=== PATIENT | female | born 1955 | race Hispanic/Latino ===

== ENCOUNTER 2020-03-31 15:40 | Inpatient (IN) | payer OTHER, SELFPAY ==
--- NOTE | 2020-03-31 16:19 | RAD ---
EXAM: CHEST TWO VIEWS: 03/31/20 HISTORY: Constant chest pain, getting worse over the last two weeks. Postop midline sternotomy. Bilateral pleural effusions, slightly larger on the right side with some b ilateral vascular congestion, these findings are new when compared to the prior 05/05/16 study. IMPRESSION: Minimal cardiomegaly with bilateral vascular congestion and bilateral pleural effusions new from prio r study. Depending on concern, consider short term follow-up for clearing or stability. POS: RRE
[2020-03-31] MEDS ORDERED: Nitroglycerin 2% Ointment 1 INCH/1 GM Packet ONE (18:14)
[2020-03-31] MEDS ORDERED: Aspirin Chewable 81 MG TAB ONE (18:14)
[2020-03-31 18:23] LABS: Prothrombin Time 13.5 sec (12.0-14.7)
[2020-03-31 18:24] LABS: PTT 32.5 sec (22.9-36.1)
[2020-03-31 18:33] LABS: #Eosinphils 0.4 thou/uL (0.0-0.7); #Lymphocytes 2.2 thou/uL (1.20-3.40); #Monocytes 0.9 thou/uL (0.11-0.59); #Neutrophils 5.6 thou/uL (1.40-6.50); %Basophils 0.5 % (0.0-1.0); %Eosinophils 4.1 % (0.0-10.0); %Monocytes 9.7 % (0.0-10.0); %Neutrophils 61.7 % (42.0-75.0); Hemoglobin 9.1 g/dL (12.0-16.0); Mean Corpuscular HGB CONC 31.7 g/dL (32.0-36.0); Mean Corpuscular Hemoglobin 27.7 pg (27.0-31.0); Mean Corpuscular Volume 87.2 fL (78.0-98.0); Mean Platelet Volume 7.9 fL (7.4-10.4); Platelet Count 375 thou/uL (130-400); RBC Distribution Width 16.1 % (11.5-14.5); Red Blood Cell (RBC) Count 3.27 mill/uL (4.20-5.40); White Blood Cell (WBC) Count 9.1 thou/uL (4.8-10.8)
[2020-03-31 18:34] LABS: ALT (SGPT) 10 U/L (8-55); AST (SGOT) 15 U/L (5-34); Albumin 3.2 g/dL (3.4-4.8); Alkaline Phosphatase 131 U/L (40-110); Anion Gap 18 mmol/L (10-20); BUN (Urea Nitrogen) 56 mg/dL (9.8-20.1); Bilirubin, Total 0.2 mg/dL (0.2-1.2); CK (CPK) 139 U/L (29-168); Calc. Creatinine Clearance 0 mL/min (70-130); Calcium 8.2 mg/dL (7.8-10.44); Carbon Dioxide 17 mmol/L (23-31); Chloride 112 mmol/L (98-107); Estimated GFR-MDRD 8; Globulin 4.1 g/dL (2.4-3.5); Glucose 121 mg/dL (80-115); Lipase 27 U/L (8-78); Potassium 4.8 mmol/L (3.5-5.1); Protein, Total 7.3 g/dL (6.0-8.3); Sodium 142 mmol/L (136-145)
[2020-03-31] MEDS ORDERED: Furosemide 40 MG/4 ML VIAL ONE (19:36)
[2020-03-31] MEDS ORDERED: hydrALAZINE 20 MG/ML VIAL ONE (20:27)
--- NOTE | 2020-03-31 20:49 | PDOC.HHP ---
Hospitalist HPI - History of Present Illness Fluid overload History of Present Illness: Patient with PMH of HTN, HLD, CAD s/p CABG and CKD presents to the ED at advice of nephrology for evaluation of fluid overload. Per patient she is being followed closely as outpatient by Dr. Mcmanus due to her renal dysfunction. She tells me that over the last 3 months she has seen a progressive decline in her overall status. Refers about a 30 lbs increase in her weight range over the last 3 months. Tells me that over the last 1-2 weeks she has noted worsening dyspnea on exertion and at rest, worsening diffuse edema and has had several episodes of chest pressure. She was instructed to increase her outpatient Lasix over the last several days but has seen little to no improvement. In ED patient with obvious evidence of fluid overload, labs reveal BUN of 53 with worsening SCr of 5.3. no significant electrolyte abnormalities, BNP is elevated at >1000, troponin is negative. Hospitalist ROS - Review of Systems Constitutional: reports: weakness, malaise. denies: fever, chills, sweats Eyes: denies: pain, vision change ENT: denies: ear pain, ear discharge Respiratory: reports: shortness of breath, SOB with excertion, sputum. denies: cough, wheezing Cardiovascular: reports: other (Chest pressure/difficulty breathing). denies: chest pain, palpitations, orthopnea, paroxysmal noc. dyspnea Gastrointestinal: denies: nausea, vomiting, abdominal pain, diarrhea Genitourinary: denies: dysuria, frequency, incontinence Musculoskeletal: denies: neck pain, shoulder pain, back pain Neurological: reports: weakness. denies: numbness, incoordination, change in speech - Exam General Appearance: NAD (Dyspnea at rest) Eye: PERRL, anicteric sclera ENT: normocephalic atraumatic Neck: supple, symmetric, JVD Heart: RRR, no murmur, no gallops Respiratory: normal chest expansion, rales Gastrointestinal: soft, non-tender, non-distended Extremities: 2+ LE edema Neurological: cranial nerve grossly intact Musculoskeletal: normal tone, normal strength Psychiatric: normal affect, normal behavior, A&O x 3 Hospitalist Results - Labs Result Diagrams: 03/31/20 17:53 03/31/20 17:53 Lab results: WBC 9.1 thou/uL (4.8-10.8) 03/31/20 17:53 Hgb 9.1 g/dL (12.0-16.0) L 03/31/20 17:53 Hct 28.5 % (36.0-47.0) L 03/31/20 17:53 MCV 87.2 fL (78.0-98.0) 03/31/20 17:53 Plt Count 375 thou/uL (130-400) 03/31/20 17:53 Neutrophils % 61.7 % (42.0-75.0) 03/31/20 17:53 Sodium 142 mmol/L (136-145) 03/31/20 17:53 Potassium 4.8 mmol/L (3.5-5.1) 03/31/20 17:53 Chloride 112 mmol/L (98-107) H 03/31/20 17:53 Carbon Dioxide 17 mmol/L (23-31) L 03/31/20 17:53 BUN 56 mg/dL (9.8-20.1) H 03/31/20 17:53 Creatinine 5.23 mg/dL (0.6-1.1) H 03/31/20 17:53 Glucose 121 mg/dL (80-115) H 03/31/20 17:53 Calcium 8.2 mg/dL (7.8-10.44) 03/31/20 17:53 Total Bilirubin 0.2 mg/dL (0.2-1.2) 03/31/20 17:53 AST 15 U/L (5-34) 03/31/20 17:53 ALT 10 U/L (8-55) 03/31/20 17:53 Alkaline Phosphatase 131 U/L (40-110) H 03/31/20 17:53 Creatine Kinase 139 U/L (29-168) 03/31/20 17:53 Troponin I 0.025 ng/mL (< 0.028) 03/31/20 17:53 B-Natriuretic Peptide 1118.8 pg/mL (0-100) H 03/31/20 17:53 Serum Total Protein 7.3 g/dL (6.0-8.3) 03/31/20 17:53 Albumin 3.2 g/dL (3.4-4.8) L 03/31/20 17:53 Lipase 27 U/L (8-78) 03/31/20 17:53 - Radiology Interpretation Chest x-ray Status: image reviewed by me (Pulmonary edema with bilateral pleural effusions) Hospitalist H&P A/P - Plan Plan: Problem List 1. Fluid overload 2. Worsening chronic renal failure 3. Bilateral pleural effusions 4. History of CAD s/p CABG 5. Uncontrolled hypertension 6. History of diabetes per records 7. Chronic anemia Assessment and Plan 1. Fluid overload - admit patient for further management - likely multifactorial with worsening CKD as major contributor - given cardiac history can not rule out CHF component - trial of IV Lasix 80 mg BID; pending response consider adding Metolazone vs Bumex - patient may need fluid management with HD - continue with fluid restriction, strict I&Os, daily weigh - monitor electrolytes closely - nephrology service has been consulted 2. Worsening chronic renal failure - multifactorial in nature - chronically has poorly controlled HTN and DM - nephrology service follows 3. Bilateral pleural effusions - in setting of fluid overload - treatment per above plan - consider thoracentesis if poor response to above management 4. History of CAD s/p CABG - per history hx of quadruple bypass - troponin currently negative - check echocardiogram - awaiting med reconciliation 5. Uncontrolled hypertension - resume home medications - add NGT ointment plus hydralazine PRN - fluid management per nephrology 6. History of diabetes per records - currently with no medications on file - check A1c in AM - awaiting med reconciliation 7. Chronic anemia - likely in setting of CKD - nephrology follows DVT PPX: HepSQ. FULL CODE
[2020-03-31] MEDS ORDERED: Acetaminophen 325 MG TAB PO PRN (21:45)
[2020-03-31] MEDS ORDERED: Ondansetron PF 4 MG/2 ML Vial IVP PRN (21:45)
[2020-03-31 22:17] VITALS: BMI 42.9
[2020-04-01 01:16] LABS: Troponin I 0.019 ng/mL (< 0.028)
[2020-04-01 04:40] LABS: #Eosinphils 0.3 thou/uL (0.0-0.7); #Lymphocytes 1.6 thou/uL (1.20-3.40); #Monocytes 0.6 thou/uL (0.11-0.59); #Neutrophils 4.6 thou/uL (1.40-6.50); %Basophils 0.1 % (0.0-1.0); %Eosinophils 4.3 % (0.0-10.0); %Lymphocytes 22.4 % (21.0-51.0); %Monocytes 8.8 % (0.0-10.0); %Neutrophils 64.4 % (42.0-75.0); Hemoglobin 8.2 g/dL (12.0-16.0); Mean Corpuscular HGB CONC 31.2 g/dL (32.0-36.0); Mean Corpuscular Hemoglobin 27.3 pg (27.0-31.0); Mean Corpuscular Volume 87.5 fL (78.0-98.0); Mean Platelet Volume 7.5 fL (7.4-10.4); Platelet Count 323 thou/uL (130-400); RBC Distribution Width 16.4 % (11.5-14.5); Red Blood Cell (RBC) Count 2.99 mill/uL (4.20-5.40); White Blood Cell (WBC) Count 7.1 thou/uL (4.8-10.8)
[2020-04-01 04:44] LABS: Hemoglobin A1c 8.2 % (4.0-6.0)
[2020-04-01 05:01] LABS: Anion Gap 16 mmol/L (10-20); BUN (Urea Nitrogen) 58 mg/dL (9.8-20.1); Calc. Creatinine Clearance 19 mL/min (70-130); Calcium 7.9 mg/dL (7.8-10.44); Carbon Dioxide 18 mmol/L (23-31); Chloride 112 mmol/L (98-107); Estimated GFR-MDRD 8; Glucose 241 mg/dL (80-115); Magnesium 1.7 mg/dL (1.6-2.6); Potassium 4.3 mmol/L (3.5-5.1); Sodium 142 mmol/L (136-145)
[2020-04-01] MEDS: hydrALAZINE 20 MG/ML VIAL SLOW IVP PRN ×3 (05:02→17:11)
[2020-04-01] MEDS: Furosemide 100 MG/10 ML VIAL SLOW IVP SCH ×2 (05:03→13:25)
[2020-04-01] MEDS ORDERED: Dextrose 50% Abboject 50 ML SYRINGE SLOW IVP PRN (08:49)
[2020-04-01] MEDS ORDERED: Dextrose 5% in Water 1,000 ML IV PRN (08:49)
[2020-04-01] MEDS ORDERED: Non-Formulary Item 1 EACH (Atorvastatin Calcium [Atorvastatin Calcium] 80 MG) PO SCH (09:00)
[2020-04-01] MEDS: Amlodipine 10 MG TAB PO SCH (09:56)
[2020-04-01] MEDS: Nitroglycerin 2% Ointment 1 INCH/1 GM Packet TOP SCH ×2 (09:56→20:14)
[2020-04-01] MEDS: Escitalopram Oxalate 20 mg Tablet PO SCH (09:56)
[2020-04-01] MEDS: Aspirin 81 mg Enteric Coated Tablet PO SCH (09:56)
[2020-04-01] MEDS: Heparin 5,000 UNITS/ML VIAL SC SCH ×3 (09:58→20:14)
[2020-04-01] MEDS: HumaLOG 300 UNITS/3 ML VIAL SC PRN ×2 (12:15→17:14)
--- NOTE | 2020-04-01 13:24 | PDOC.HOSPP ---
- Subjective Encounter Date: 04/01/20 Encounter Time: 10:25 Subjective: has sob at rest and worse on minimal exertion no chest pain or palp at bedside - Objective Vital Signs & Weight: Vital Signs (12 hours) Temp Pulse Resp BP Pulse Ox 04/01/20 12:07 97.8 F 66 20 185/79 H 94 L 04/01/20 07:55 97.5 F L 68 16 187/75 H 94 L 04/01/20 07:07 94 L 04/01/20 03:39 97.5 F L 69 20 196/81 H 94 L Weight Weight 235 lb I&O: 03/31/20 04/01/20 04/02/20 06:59 06:59 06:59 Intake Total 240 Output Total 900 Balance -660 Result Diagrams: 04/01/20 04:14 04/01/20 04:14 Additional Labs: Accuchecks 04/01/20 11:07 POC Glucose 347 H Hospitalist ROS - Medication Medications: Active Medications Generic Name Dose Route Start Last Admin Trade Name Freq PRN Reason Stop Dose Admin Amlodipine Besylate 10 mg 04/01/20 09:00 04/01/20 09:56 Norvasc PO 10 mg DAILY SHANITA Administration Aspirin 81 mg 04/01/20 09:00 04/01/20 09:56 Ecotrin PO 81 mg DAILY SHANITA Administration Escitalopram Oxalate 20 mg 04/01/20 09:00 04/01/20 09:56 Lexapro PO 20 mg DAILY SHANITA Administration Furosemide 80 mg 04/01/20 06:00 04/01/20 05:03 Lasix SLOW IVP 80 mg 0600,1400 SHANITA Administration Heparin Sodium (Porcine) 5,000 units 04/01/20 09:00 04/01/20 09:58 Heparin SC 5,000 units TID SHANITA Administration Hydralazine HCl 10 mg 03/31/20 22:04 04/01/20 12:20 Apresoline SLOW IVP 10 mg Q4H PRN Administration SBP Greater Than 170 Insulin Human Lispro 0 units 04/01/20 08:49 04/01/20 12:15 Humalog SC 8 unit .MODERATE SLIDING SC PRN Administration Moderate Correctional Scale Metoprolol Succinate 200 mg 04/01/20 09:00 04/01/20 09:56 Toprol Xl PO 200 mg DAILY SHANITA Administration Nitroglycerin 0.5 inch 04/01/20 09:00 04/01/20 09:56 Nitro-Bid 2% Ointment TOP 0.5 inch BID SHANITA Administration Sodium Chloride 10 ml 04/01/20 09:00 04/01/20 09:58 Flush - Normal Saline IVF 10 ml Q12HR SHANITA Administration - Exam General Appearance: awake alert, ill appearing Eye: PERRL, anicteric sclera ENT: no oropharyngeal lesions, moist mucosa Neck: supple, JVD Heart: RRR, no murmur Respiratory: no wheezes, rales, rhonchi Gastrointestinal: soft, non-tender, non-distended, normal bowel sounds Extremities: no cyanosis, 1+ LE edema Neurological: cranial nerve grossly intact, no focal deficits Psychiatric: normal affect, A&O x 3 Hosp A/P (1) Volume overload Code(s): E87.70 - FLUID OVERLOAD, UNSPECIFIED Status: Acute (2) YENIFER (acute kidney injury) Code(s): N17.9 - ACUTE KIDNEY FAILURE, UNSPECIFIED Status: Acute (3) CKD (chronic kidney disease) stage 4, GFR 15-29 ml/min Code(s): N18.4 - CHRONIC KIDNEY DISEASE, STAGE 4 (SEVERE) Status: Chronic (4) Metabolic acidosis Code(s): E87.2 - ACIDOSIS Status: Acute (5) CAD (coronary artery disease) Code(s): I25.10 - ATHSCL HEART DISEASE OF [place] CORONARY ARTERY W/O ANG PCTRS Status: Chronic Qualifiers: Coronary Disease-Associated Artery/Lesion type: bypass graft [place] vs. transplanted heart: [place] heart Associated angina: without angina Qualified Code(s): I25.810 - Atherosclerosis of coronary artery bypass graft(s) without angina pectoris (6) Chronic anemia Code(s): D64.9 - ANEMIA, UNSPECIFIED Status: Chronic (7) HTN (hypertension) Code(s): I10 - ESSENTIAL (PRIMARY) HYPERTENSION Status: Chronic Qualifiers: Hypertension type: essential hypertension Qualified Code(s): I10 - Essential (primary) hypertension (8) Dyslipidemia Code(s): E78.5 - HYPERLIPIDEMIA, UNSPECIFIED Status: Chronic - Plan is on lasix, toprol xl, norvasc and asp echo shows normal ef d/w , wants to observe if her renal function and sob will improve with meds if not will initiate hemodialysis will likely end up on HD this admission humalog sliding scale for now, will add lantus if needed hemostable d/w patient and at bedside
[2020-04-01] MEDS ORDERED: Metolazone 2.5 MG TAB PO SCH (17:15)
--- NOTE | 2020-04-01 18:29 | PRG ---
DATE OF SERVICE: 04/01/2020 SUBJECTIVE: A 64-year-old female being seen for stage 5 chronic kidney disease. Patient states breathing is better, but still has lot of swelling. OBJECTIVE: GENERAL: Awake, alert. VITAL SIGNS: Pulse is 68, breathing 16, blood pressure 171/74. HEENT: Head normocephalic and atraumatic. Eyes intact, no ulcers. Nose intact, no ulcers. Ears intact, no ulcers. NECK: Supple. No JVD. CHEST: Symmetrical and clear. CARDIOVASCULAR: Shows S1 and S2, no rub, no murmur. GASTROINTESTINAL: Abdomen is soft, bowel sounds positive. EXTREMITIES: Show no edema or ulcers. SKIN: Shows no rash or petechiae. MUSCULOSKELETAL: Shows no joint swelling or stiffness. GENITOURINARY: Shows no Burns or CVA tenderness. NEUROLOGIC: Motor intact. Cranial nerves intact. LABORATORY DATA: Reviewed. ASSESSMENT: Stage 5 chronic kidney disease. Continue dialysis. Hypertension, stable. Anemia, stable. Congestive heart failure. Continue diabetic medication based on GFR appropriate. We will consult General Surgery for venous mapping. If renal function does not improve by tomorrow, we will consider a tunneled dialysis catheter. Job ID: [id number]
[2020-04-01] MEDS: Atorvastatin Calcium 40 MG TAB PO SCH (20:14)
[2020-04-01] MEDS ORDERED: CEFAZOLIN 2 GM in Premix Bag 1 BAG IVPB SCH (20:45)
--- NOTE | 2020-04-01 20:59 | CON ---
DATE OF CONSULTATION: HISTORY OF PRESENT ILLNESS: Aruna Valdez is a 64-year-old female, admitted to the Hospitalist Service for progressive kidney disease. I have been asked to see her by Dr. Blair regarding placement of a primary fistula. Her GFR is 8, BUN 58, creatinine 5.2, potassium 4.3, CO2 is 18. She is 43 BMI, 5 feet 2 inches, and 235 pounds. She has metabolic syndrome with morbid obesity, diabetes, hypertension, elevated cholesterol, coronary artery disease status post coronary artery bypass grafting two years ago followed by Dr. Arita. Urine output is 900 mL per day. I have been asked to see her regarding placement of a primary fistula. We will also plan placement of central line due to difficult IV access. She does not need hemodialysis catheter access yet, but we will wait for her numbers tomorrow and ask Dr. Blair before we plan this around noon. ALLERGIES: NONE. SOCIAL HISTORY: Tobacco, none. Alcohol, none. MEDICATIONS: 1. Insulin. 2. Hydralazine. 3. Lexapro. 4. Amlodipine. 5. Metoprolol. 6. Aspirin. 7. Furosemide. 8. Atorvastatin. PAST SURGICAL HISTORY: Coronary artery bypass grafting in 2017, followed by Dr. Arita. PAST MEDICAL HISTORY: As noted above. FAMILY HISTORY: Heart disease and renal failure. REVIEW OF SYSTEMS: Noncontributory. Never has had colonoscopy. PHYSICAL EXAMINATION: VITAL SIGNS: 5 feet 2 inches, 235 pounds, 43 BMI, temperature 94, heart rate 165, and blood pressure 167/74. HEAD, EARS, EYES, NOSE, AND THROAT: Unremarkable. LUNGS: Clear to auscultation. CARDIAC: Regular rate and rhythm without murmur or gallop. ABDOMEN: Obese, soft, and nontender. EXTREMITIES: Unremarkable. Large pannus. Palpable radial pulses. ASSESSMENT AND PLAN: Progressive kidney disease. Plan placement of primary fistula of right or left arm pending vein mapping. Plan placement of a central line. If Dr. Blair decides he needs a dialysis catheter, we will also place that, but at this time, she probably does not need that. Job ID: [id number]
--- NOTE | 2020-04-01 23:28 | ULT ---
Exam: Vein mapping for dialysis access HISTORY: End-stage renal disease. TECHNIQUE: Multiplanar grayscale and color Doppler images were obtained in a bilateral upper extremit y venous ultrasound. Spectral analysis of the Doppler waveforms of the vessels were performed. FINDINGS: The bilateral internal jugular and axillary veins as well as subclavian veins demonstrate f low. Right brachial artery 5.6 mm Right radial artery 2.4 mm Right ulnar artery 1.8 mm Left brachial artery 5.4 mm Left radial artery 2.3 mm Left ulnar artery 2.3 mm RIGHT CEPHALIC VEIN in millimeters 3.6 -- Shoulder 3.0 -- Upper arm 3.3 -- Mid upper arm 3.7-- Just proximal to the elbow 2.0 -- Just distal to the elbow 2.0 -- Forearm 1.4 -- Wrist RIGHT BASILIC VEIN in millimeters 5.2 -- Shoulder 2.2 -- Upper arm 2.2 -- Mid upper arm 2.2 -- Just proximal to the elbow 1.4 -- Just distal to the elbow 2.2 -- Forearm 1.6 -- Wrist LEFT CEPHALIC VEIN in millimeters 4.0 -- Shoulder 3.9 -- Upper arm 3.4 -- Mid upper arm 2.7 -- Just proximal to the elbow 3.3 -- Just distal to the elbow 2.1 -- Forearm 1.7 -- Wrist LEFT BASILIC VEIN in millimeters 5.2 -- Shoulder 2.5 -- Upper arm 2.5 -- Mid upper arm 2.4 -- Just proximal to the elbow 2.0 -- Just distal to the elbow 2.0 -- Forearm 1.7 -- Wrist IMPRESSION: Vein mapping for dialysis access as above
--- NOTE | 2020-04-02 01:00 | CON ---
DATE OF CONSULTATION: 03/31/2020 REASON FOR CONSULTATION: Edema and congestive heart failure. HISTORY OF PRESENT ILLNESS: This is a 64-year-old female, who was sent to the hospital from my clinic for worsening leg pain, nausea, and inability to breathe. The patient has history of progressive renal disease. The patient denies any chest pain or vomiting, but has had chest heaviness on and off. PAST MEDICAL HISTORY: Significant for hypertension, edema, diabetes mellitus, anemia, obesity, SOCIOECONOMIC HISTORY: No alcohol or drug use. FAMILY HISTORY: Negative for ESRD. ALLERGIES: REVIEWED. HOME MEDICATION LIST: Reviewed. HOSPITAL MEDICATION LIST: Reviewed. REVIEW OF SYSTEMS: A 15-point review of system was performed and negative except for positives noted above. HEENT: Eyes intact, no diplopia. Ears: No hearing loss or earache. Nose: No discharge or bleeding. CHEST: No cough or phlegm. ABDOMEN: No nausea or vomiting. GENITOURINARY: No hematuria. No Burns catheter. MUSCULOSKELETAL: No low back pain. No joint swelling or pain. NEUROLOGICAL: No syncope. No seizures. SKIN: No complaints of rash or itching. PSYCHIATRIC: No depression. CONSTITUTIONAL: No weight loss or loss of appetite. PHYSICAL EXAMINATION: GENERAL: The patient is awake and alert. VITAL SIGNS: Afebrile, pulse 75, breathing at 16, blood pressure was 180/90 HEENT: Head normocephalic and atraumatic. Eyes intact, no ulcers. Nose intact, no ulcers. Ears intact, no ulcers. NECK: Supple. No JVD. CHEST: Symmetrical and clear. CARDIOVASCULAR: Shows S1 and S2, no rub, no murmur. GASTROINTESTINAL: Abdomen is soft, bowel sounds positive. EXTREMITIES: The patient has 4+ edema. SKIN: Shows no rash or petechiae. MUSCULOSKELETAL: Shows no joint swelling or stiffness. GENITOURINARY: Shows no Burns or CVA tenderness. NEUROLOGIC: Motor intact. Cranial nerves intact. LABORATORY DATA: Reviewed. ASSESSMENT AND PLAN: Stage 5 chronic kidney disease with acute kidney injury and pulmonary edema. We will start IV diuretics. If fails, we will consider dialysis. Hypertensive and anemic, stable; medication based on GFR if appropriate. Job ID: [id number]
[2020-04-02 04:10] LABS: Anion Gap 18 mmol/L (10-20); BUN (Urea Nitrogen) 57 mg/dL (9.8-20.1); Calc. Creatinine Clearance 18 mL/min (70-130); Calcium 7.8 mg/dL (7.8-10.44); Carbon Dioxide 17 mmol/L (23-31); Chloride 110 mmol/L (98-107); Estimated GFR-MDRD 8; Glucose 218 mg/dL (80-115); Potassium 4.2 mmol/L (3.5-5.1); Sodium 141 mmol/L (136-145)
[2020-04-02 04:14] LABS: Troponin I 0.028 ng/mL (< 0.028)
[2020-04-02] MEDS: Furosemide 100 MG/10 ML VIAL SLOW IVP SCH ×2 (06:06→18:38)
[2020-04-02] MEDS: Heparin 5,000 UNITS/ML VIAL SC SCH ×3 (08:37→20:37)
[2020-04-02] MEDS: Aspirin 81 mg Enteric Coated Tablet PO SCH (08:39)
[2020-04-02] MEDS: Amlodipine 10 MG TAB PO SCH (08:39)
[2020-04-02] MEDS: Escitalopram Oxalate 20 mg Tablet PO SCH (08:39)
[2020-04-02] MEDS: Nitroglycerin 2% Ointment 1 INCH/1 GM Packet TOP SCH ×2 (08:40→20:37)
[2020-04-02] MEDS: hydrALAZINE 20 MG/ML VIAL SLOW IVP PRN (11:11)
[2020-04-02] MEDS: HumaLOG 300 UNITS/3 ML VIAL SC PRN (11:13)
[2020-04-02] MEDS ORDERED: Metolazone 2.5 MG TAB PO SCH (12:30)
--- NOTE | 2020-04-02 12:57 | PRG ---
DATE OF SERVICE: 04/02/2020 SUBJECTIVE: A 64-year-old female, being seen for acute kidney injury. The patient still complains of shortness of breath and swelling. The patient denies any chest pain. OBJECTIVE: General: The patient is resting. Vital Signs: Afebrile, pulse 75, breathing 16, blood pressure 167/68. HEENT: Head normocephalic and atraumatic. Eyes intact, no ulcers. Nose intact, no ulcers. Ears intact, no ulcers. Neck: Supple. No JVD. Chest: Symmetrical and clear. Cardiovascular: Shows S1 and S2, no rub, no murmur. Gastrointestinal: Abdomen is soft, bowel sounds positive. Extremities: Show no edema or ulcers. Skin: Shows no rash or petechiae. Musculoskeletal: Shows no joint swelling or stiffness. Genitourinary: Shows no Burns or CVA tenderness. Neurologic: Motor intact. Cranial nerves intact. LABORATORY DATA: Hemoglobin 8.2. Creatinine 5.39. ASSESSMENT AND PLAN: 1. Stage 6 chronic kidney disease. Risks versus benefits of dialysis were discussed. We will plan dialysis. 2. Hypertension, plan ultrafiltration. 3. Edema, start metolazone daily. 4. Metabolic acidosis, plan dialysis. Job ID: [id number]
--- NOTE | 2020-04-02 14:24 | PDOC.HOSPP ---
- Subjective Encounter Date: 04/02/20 Encounter Time: 09:35 Subjective: has sob, no chest pain or palp is amb in room - Objective Vital Signs & Weight: Vital Signs (12 hours) Temp Pulse Resp BP Pulse Ox 04/02/20 11:05 97.9 F 71 18 187/74 H 95 04/02/20 10:27 71 167/68 H 04/02/20 07:46 98.9 F 74 19 189/74 H 94 L 04/02/20 04:00 98.3 F 65 16 142/58 H 96 Weight Weight 234 lb I&O: 04/01/20 04/02/20 04/03/20 06:59 06:59 06:59 Intake Total 240 240 Output Total 900 1200 Balance -660 -960 Result Diagrams: 04/01/20 04:14 04/02/20 03:31 Additional Labs: Accuchecks 04/02/20 04/02/20 04/01/20 13:58 05:58 20:34 POC Glucose 194 H 244 H 261 H 04/01/20 17:11 POC Glucose 210 H Hospitalist ROS - Medication Medications: Active Medications Generic Name Dose Route Start Last Admin Trade Name Freq PRN Reason Stop Dose Admin Amlodipine Besylate 10 mg 04/01/20 09:00 04/02/20 08:39 Norvasc PO 10 mg DAILY SHANITA Administration Aspirin 81 mg 04/01/20 09:00 04/02/20 08:39 Ecotrin PO 81 mg DAILY SHANITA Administration Atorvastatin Calcium 80 mg 04/01/20 21:00 04/01/20 20:14 Lipitor PO 80 mg HS SHANITA Administration Escitalopram Oxalate 20 mg 04/01/20 09:00 04/02/20 08:39 Lexapro PO 20 mg DAILY SHANITA Administration Furosemide 80 mg 04/01/20 06:00 04/02/20 06:06 Lasix SLOW IVP 80 mg 0600,1400 SHANITA Administration Heparin Sodium (Porcine) 5,000 units 04/01/20 09:00 04/02/20 08:37 Heparin SC Not Given TID SHANITA Hydralazine HCl 10 mg 03/31/20 22:04 04/02/20 11:11 Apresoline SLOW IVP 10 mg Q4H PRN Administration SBP Greater Than 170 Insulin Human Lispro 0 units 04/01/20 08:49 04/02/20 11:13 Humalog SC 4 unit .MODERATE SLIDING SC PRN Administration Moderate Correctional Scale Metoprolol Succinate 200 mg 04/01/20 09:00 04/02/20 08:39 Toprol Xl PO 200 mg DAILY SHANITA Administration Nitroglycerin 0.5 inch 04/01/20 09:00 04/02/20 08:40 Nitro-Bid 2% Ointment TOP 0.5 inch BID SHANITA Administration Sodium Chloride 10 ml 04/01/20 09:00 04/02/20 08:41 Flush - Normal Saline IVF 10 ml Q12HR SHANITA Administration - Exam General Appearance: awake alert, ill appearing Eye: PERRL, anicteric sclera ENT: no oropharyngeal lesions, moist mucosa Neck: supple, no JVD Heart: RRR, no murmur Respiratory: no wheezes, rales Gastrointestinal: soft, non-tender, non-distended, normal bowel sounds Extremities: no cyanosis, 1+ LE edema Neurological: cranial nerve grossly intact, no focal deficits Psychiatric: normal affect, A&O x 3 Hosp A/P (1) Volume overload Code(s): E87.70 - FLUID OVERLOAD, UNSPECIFIED Status: Acute (2) YENIFER (acute kidney injury) Code(s): N17.9 - ACUTE KIDNEY FAILURE, UNSPECIFIED Status: Acute (3) CKD (chronic kidney disease) stage 4, GFR 15-29 ml/min Code(s): N18.4 - CHRONIC KIDNEY DISEASE, STAGE 4 (SEVERE) Status: Chronic (4) Metabolic acidosis Code(s): E87.2 - ACIDOSIS Status: Acute (5) CAD (coronary artery disease) Code(s): I25.10 - ATHSCL HEART DISEASE OF [place] CORONARY ARTERY W/O ANG PCTRS Status: Chronic Qualifiers: Coronary Disease-Associated Artery/Lesion type: bypass graft [place] vs. transplanted heart: [place] heart Associated angina: without angina Qualified Code(s): I25.810 - Atherosclerosis of coronary artery bypass graft(s) without angina pectoris (6) Chronic anemia Code(s): D64.9 - ANEMIA, UNSPECIFIED Status: Chronic (7) HTN (hypertension) Code(s): I10 - ESSENTIAL (PRIMARY) HYPERTENSION Status: Chronic Qualifiers: Hypertension type: essential hypertension Qualified Code(s): I10 - Essential (primary) hypertension (8) Dyslipidemia Code(s): E78.5 - HYPERLIPIDEMIA, UNSPECIFIED Status: Chronic - Plan is on lasix, metolazone, toprol xl, norvasc and asp echo shows normal ef will likely start HD this admission humalog sliding scale for now, will add lantus if needed hemostable
[2020-04-02] MEDS ORDERED: Bupivacaine HCl 0.5%/Epinephrine 1:200,000/PF 30 ml Vial ONE (15:25)
[2020-04-02] MEDS ORDERED: PROPOFOL 200 MG/20 ML VIAL ONE (15:25)
[2020-04-02] MEDS ORDERED: Fentanyl 100 MCG/2 ML VIAL ONE (15:44)
[2020-04-02] MEDS ORDERED: Lidocaine 2% PF 5 ML VIAL ONE (15:52)
[2020-04-02] MEDS ORDERED: Heparin 5,000 UNITS/ML VIAL ONE (15:52)
[2020-04-02] MEDS ORDERED: Heparin 10,000 UNITS/1 ML VIAL ONE (15:52)
[2020-04-02] MEDS ORDERED: Sodium Chloride 0.9% 40 ML ONE (15:52)
[2020-04-02] MEDS ORDERED: Protamine Sulfate 50 MG/5 ML VIAL ONE (15:52)
[2020-04-02] MEDS ORDERED: Bupivacaine PF 0.5% 30 ML VIAL ONE (15:52)
--- NOTE | 2020-04-02 18:43 | RAD ---
EXAM: CHEST ONE VIEW HISTORY: Post hemodialysis catheter placement. COMPARISON: 03/31/2020 FINDINGS: There has been interval placement of a left internal jugular vein central venous catheter with tip ov erlying the expected location of the cavoatrial junction. There has also been interval placement of a tunneled right internal jugular vein hemodialysis catheter with the tip also overlying the expected location of the cavoatrial junction. Median sternotomy wires are present. Cardiac silhouette is enlarged. There is mild pulmonary vascular congestion. Lungs are otherwise clear without pneumothorax or definite pleural effusion. Vascular calcifications are seen in the thoracic aorta. IMPRESSION: 1 Interval placement of a left internal jugular vein central venous catheter in tunneled right internet designer al jugular vein hemodialysis catheter with the tip of each catheter overlying the expected location the cavoatrial junction. No pneumothorax or pleural effusion is seen. 2. Cardiomegaly and pulmonary vascular congestion.
[2020-04-02] MEDS: Atorvastatin Calcium 40 MG TAB PO SCH (20:37)
--- NOTE | 2020-04-03 00:36 | OP ---
DATE OF PROCEDURE: 04/02/2020 PREOPERATIVE DIAGNOSES: 1. End-stage renal disease. 2. Morbid obesity. 3. Metabolic syndrome. 4. Insulin-dependent diabetes mellitus. 5. Sleep apnea. 6. Orthopnea. 7. Dyspnea. 8. Fluid overload. 9. Acidosis. 10. Poor IV access. PROCEDURES PERFORMED: Right IJ cuffed tunneled dialysis catheter, left IJ central line, ultrasound and fluoroscopy used. Left arm primary fistula, exploration of the wrist noting veins to be inadequate, and wound close. Proximal volar forearm antecubital vein to proximal radial artery outflow primarily. Basilic vein seemed to be larger, but cephalic vein patent. She will need a basilic vein transposition fistula in the future. ANESTHESIA: Regional, TIVA local. DESCRIPTION OF PROCEDURE: Patient was taken to the operating room, where under left arm regional anesthesia and intravenous sedation, neck and chest and left upper extremity were prepared with ChloraPrep and draped in routine fashion, local anesthetic totaling skin and subcutaneous tissue about the operative site. Ultrasound guidance was used to cannulate the right and left internal jugular veins and J-wire threaded on each side. Trocar catheter removed. Skin was incised sharply on both sides. Stab incision over the right chest made. Seldinger technique used to place a triple-lumen catheter left IJ, secured with 3-0 nylon suture, removed the J-wire, securing the catheter and placed a sterile dressing. Aspirated each port of blood, flushed with saline solution. Attention was then turned to the right, where a tunneling device used to tunnel the pre-curved [employer] cuffed tunneled hemodialysis catheter between the 2 incisions, placed the fabric cuff in the skin exit site over the right chest and catheter secured with 2 interrupted suture of 3-0 nylon. Sterile dressing applied. Small and medium size dilators placed with J-wire into the internal jugular vein removed. Dilator and Peel-Away sheath placed and J-wire and dilator removed. Catheter placed with Peel-Away sheath. Peel-Away sheath removed. Fluoroscopy images revealed good line placement. Platysma was approximated with 4-0 Monocryl, skin with subdermal 4-0 Monocryl. Manawa glue applied. Each port aspirated of blood, flushed with saline solution with heparinized saline solution 1000 units of heparin per mL, indicating volume of the port. Attention was then turned to the left arm. Incision was made in the left wrist finding the vein to be inadequate and this was closed with 3-0 Monocryl subcutaneous tissue approximation. Skin with subdermal 4-0 Monocryl. Manawa glue applied. Attention was then turned to the proximal volar forearm, where longitudinal incision was made below the antecubital fossa, carried through the skin and subcutaneous tissue. Patient is morbidly obese and had a very thick adipose layer. The antecubital vein was dissected free. Perforating branch dissected free. Branches were divided between clips and interrogated, it was too small, it was ligated with a 4-0 silk tie. An antecubital vein doubly clipped with large clips on the hand side and transected and the patient was given 6000 units of heparin intravenously. The vein was spatulated, flushed with heparinized saline solution, interrogated with coronary dilators, placed the coronary dilators from 2 mm to 4 mm dilator out the basilic vein outflow and a 3.5 mm out the cephalic vein outflow. The cephalic vein outflow seemed to be temperamental and sometimes would allow dilator and sometimes would not. Proximal radial artery identified, clamped proximally and distally, longitudinal arteriotomy was made sharply, elongated with the Alaniz scissors for 2 cm anastomosis. The end antecubital vein appropriately spatulated, continuous suture of 6-0 Prolene used for the anastomosis completing the anastomosis and hemostasis with 6-0 Prolene. Good hemostasis noted. Vascular clamps released. There was good Doppler signal in the basilic cephalic vein outflow. Good hemostasis noted. Patient was given 25 mg of protamine intravenously by Anesthesia. Subcutaneous tissue was approximated with 3-0 Monocryl, skin with subdermal 4-0 Monocryl, and Manawa glue applied. Patient tolerated the procedure well. Job ID: [id number]
[2020-04-03] MEDS: traMADol HCl 50 MG TAB PO PRN ×2 (02:06→18:19)
[2020-04-03 04:52] LABS: Hep B Core Total Ab Non-Reactive (NonReactive)
[2020-04-03 04:53] LABS: Hep B Surf Ag Non-Reactive S/CO (NonReactive)
[2020-04-03 05:56] LABS: HBSAg Index 0.13 S/CO (0-0.99); Hep B Surf AB Non-Reactive (NonReactive)
[2020-04-03 05:57] LABS: HBSAB Concentration 1.39 mIU/mL; Hep C IgG Ab Non-Reactive (NonReactive); Hep C Index 0.05 S/CO (0-0.79)
[2020-04-03] MEDS: Furosemide 100 MG/10 ML VIAL SLOW IVP SCH ×2 (05:59→17:21)
[2020-04-03] MEDS: HumaLOG 300 UNITS/3 ML VIAL SC PRN ×3 (05:59→21:11)
[2020-04-03] MEDS: Amlodipine 10 MG TAB PO SCH (08:51)
[2020-04-03] MEDS: Aspirin 81 mg Enteric Coated Tablet PO SCH (08:51)
[2020-04-03] MEDS: Escitalopram Oxalate 20 mg Tablet PO SCH (08:51)
[2020-04-03] MEDS: Heparin 5,000 UNITS/ML VIAL SC SCH ×3 (08:51→21:11)
[2020-04-03] MEDS: Acetaminophen 500 MG TAB PO PRN ×2 (08:51→21:10)
[2020-04-03] MEDS: Polyethylene Glycol 3350 17 GM Packet PO SCH (08:52)
[2020-04-03] MEDS: Nitroglycerin 2% Ointment 1 INCH/1 GM Packet TOP SCH ×2 (08:52→21:10)
[2020-04-03 09:22] LABS: Hemoglobin 8.3 g/dL (12.0-16.0)
[2020-04-03 09:34] LABS: Anion Gap 14 mmol/L (10-20); BUN (Urea Nitrogen) 59 mg/dL (9.8-20.1); Calc. Creatinine Clearance 16 mL/min (70-130); Calcium 7.9 mg/dL (7.8-10.44); Carbon Dioxide 19 mmol/L (23-31); Chloride 104 mmol/L (98-107); Estimated GFR-MDRD 7; Glucose 224 mg/dL (80-115); Sodium 133 mmol/L (136-145)
--- NOTE | 2020-04-03 09:59 | PRG ---
DATE OF SERVICE: 04/03/2020 SUBJECTIVE: A 64-year-old female being seen for end-stage renal disease. The patient denied nausea, vomiting, or chest pain. OBJECTIVE: GENERAL: On exam, the patient is awake and alert. VITAL SIGNS: Afebrile, pulse 64, breathing 16, and blood pressure 185/75. HEENT: Head normocephalic and atraumatic. Eyes intact, no ulcers. Nose intact, no ulcers. Ears intact, no ulcers. NECK: Supple. No JVD. CHEST: Symmetrical and clear. CARDIOVASCULAR: Shows S1 and S2, no rub, no murmur. GASTROINTESTINAL: Abdomen is soft, bowel sounds positive. EXTREMITIES: Show no edema or ulcers. SKIN: Shows no rash or petechiae. MUSCULOSKELETAL: Shows no joint swelling or stiffness. GENITOURINARY: Shows no Burns or CVA tenderness. NEUROLOGIC: Motor intact. Cranial nerves intact. LABORATORY DATA: Reviewed. Today's labs are pending. ASSESSMENT AND PLAN: 1. Chronic kidney disease, stage 6. Plan dialysis. 2. Hypertension. Plan ultrafiltration. 3. Edema. Plan ultrafiltration. 4. Anemia, stable. 5. Medications based on GFR are appropriate. Job ID: [id number]
[2020-04-03] MEDS ORDERED: Heparin 10,000 UNITS/ 10 ML VIAL ONE (10:03)
--- NOTE | 2020-04-03 10:39 | PDOC.HOSPP ---
- Subjective Encounter Date: 04/03/20 Encounter Time: 09:45 Subjective: Patient seen and examined for volume overload/CHF. SOB improving. No CP. No new complaints. No overnight events - Objective Vital Signs & Weight: Vital Signs (12 hours) Temp Pulse Resp BP BP Pulse Ox 04/03/20 08:51 64 185/75 H 04/03/20 08:00 97.8 F 64 18 185/75 H 93 L 04/03/20 03:43 97.7 F 64 18 148/67 H 95 04/02/20 23:41 156/68 H Weight Weight 230 lb 4.8 oz I&O: 04/02/20 04/03/20 04/04/20 06:59 06:59 06:59 Intake Total 240 Output Total 1200 Balance -960 Result Diagrams: 04/03/20 09:12 04/03/20 09:12 Additional Labs: Accuchecks 04/02/20 04/02/20 04/02/20 20:26 13:58 11:13 POC Glucose 237 H 194 H 228 H EKG Reviewed by me: Yes (Tele SR) Hospitalist ROS - Review of Systems Respiratory: denies: cough, dry, shortness of breath, hemoptysis, SOB with excertion, pleuritic pain, sputum, wheezing, other Cardiovascular: denies: chest pain, palpitations, orthopnea, paroxysmal noc. dyspnea, edema, light headedness, other - Medication Medications: Active Medications Generic Name Dose Route Start Last Admin Trade Name Freq PRN Reason Stop Dose Admin Acetaminophen 1,000 mg 04/02/20 18:20 04/03/20 08:51 Tylenol PO 1,000 mg Q6H PRN Administration Moderate to Severe Pain (6-10) Amlodipine Besylate 10 mg 04/01/20 09:00 04/03/20 08:51 Norvasc PO 10 mg DAILY SHANITA Administration Aspirin 81 mg 04/01/20 09:00 04/03/20 08:51 Ecotrin PO 81 mg DAILY SHANITA Administration Atorvastatin Calcium 80 mg 04/01/20 21:00 04/02/20 20:37 Lipitor PO Not Given HS SHANITA Escitalopram Oxalate 20 mg 04/01/20 09:00 04/03/20 08:51 Lexapro PO 20 mg DAILY SHANITA Administration Furosemide 80 mg 04/01/20 06:00 04/03/20 05:59 Lasix SLOW IVP 80 mg 0600,1400 SHANITA Administration Heparin Sodium (Porcine) 5,000 units 04/01/20 09:00 04/03/20 08:51 Heparin SC 5,000 units TID SHANITA Administration Hydralazine HCl 10 mg 03/31/20 22:04 04/02/20 11:11 Apresoline SLOW IVP 10 mg Q4H PRN Administration SBP Greater Than 170 Insulin Human Lispro 0 units 04/01/20 08:49 04/03/20 05:59 Humalog SC 4 unit .MODERATE SLIDING SC PRN Administration Moderate Correctional Scale Metoprolol Succinate 200 mg 04/01/20 09:00 04/03/20 08:51 Toprol Xl PO 200 mg DAILY SHANITA Administration Nitroglycerin 0.5 inch 04/01/20 09:00 04/03/20 08:52 Nitro-Bid 2% Ointment TOP 0.5 inch BID SHANITA Administration Polyethylene Glycol 17 gm 04/03/20 09:00 04/03/20 08:52 Miralax PO Not Given DAILY [facility] Sodium Chloride 10 ml 04/01/20 09:00 04/03/20 08:52 Flush - Normal Saline IVF 10 ml Q12HR SHANITA Administration Tramadol HCl 50 mg 04/02/20 18:20 04/03/20 02:06 Ultram PO 50 mg Q12H PRN Administration Pain - Exam General Appearance: NAD Heart: RRR, no gallops Respiratory: no wheezes, no rales Gastrointestinal: soft, non-distended Extremities: no cyanosis, 2+ LE edema Neurological: no new deficit Psychiatric: normal affect, A&O x 3 Hosp A/P - Plan DVT proph w/heparin, DVT proph w/SCDs Acute on chronic diastolic HF/Volume overload YENIFER on CKD 4 CAD Metabolic acidosis HTN Dyslipidemia Chronic anemia prob due to renal failure Morbid obesity PLAN: s/p dialysis acess Cont Amlodipine, BB and NTG patch Cont PRN Meds Dialysis per Nephrology Await outpt dialysis Cont fluid restriction
--- NOTE | 2020-04-03 13:59 | PRG ---
DATE OF SERVICE: 04/03/2020 Ms. Valdez is doing well today. She has good thrill and bruit in her left arm fistula, antecubital area, outflow basilic and cephalic vein upper arm. BMI 42, height 5 feet and 2 inches, weight 230 pounds. She is severely obese and the vein is very deep and will not be able to be access without a transposition fistula in the future. Recommendations are for her to exercise the left arm and use it and return to see me in the office in 4 to 6 weeks. At a later time, we will need to do a transposition to gain a functioning fistula. She is feeling better after initiating dialysis, breathing better and able to lay flat now. I will see her as needed this hospitalization. Please call if necessary. Job ID: [id number]
[2020-04-03] MEDS: Atorvastatin Calcium 40 MG TAB PO SCH (21:10)
[2020-04-04] MEDS: hydrALAZINE 20 MG/ML VIAL SLOW IVP PRN (05:50)
[2020-04-04] MEDS: Furosemide 100 MG/10 ML VIAL SLOW IVP SCH ×2 (05:50→15:53)
[2020-04-04] MEDS: HumaLOG 300 UNITS/3 ML VIAL SC PRN ×3 (06:05→17:37)
[2020-04-04] MEDS: Acetaminophen 500 MG TAB PO PRN (06:05)
[2020-04-04 06:22] LABS: Hemoglobin 7.4 g/dL (12.0-16.0); Platelet Count 282 thou/uL (130-400)
[2020-04-04 06:41] LABS: Anion Gap 14 mmol/L (10-20); BUN (Urea Nitrogen) 42 mg/dL (9.8-20.1); Calc. Creatinine Clearance 21 mL/min (70-130); Calcium 7.5 mg/dL (7.8-10.44); Carbon Dioxide 24 mmol/L (23-31); Chloride 101 mmol/L (98-107); Estimated GFR-MDRD 10; Glucose 174 mg/dL (80-115); Potassium 3.8 mmol/L (3.5-5.1); Sodium 135 mmol/L (136-145)
[2020-04-04] MEDS: Polyethylene Glycol 3350 17 GM Packet PO SCH (08:07)
[2020-04-04] MEDS: Nitroglycerin 2% Ointment 1 INCH/1 GM Packet TOP SCH (08:09)
[2020-04-04] MEDS: Amlodipine 10 MG TAB PO SCH (08:09)
[2020-04-04] MEDS: Aspirin 81 mg Enteric Coated Tablet PO SCH (08:09)
[2020-04-04] MEDS: Escitalopram Oxalate 20 mg Tablet PO SCH (08:09)
[2020-04-04] MEDS: Heparin 5,000 UNITS/ML VIAL SC SCH ×3 (08:10→21:00)
[2020-04-04] MEDS ORDERED: Heparin 10,000 UNITS/ 10 ML VIAL ONE (10:01)
--- NOTE | 2020-04-04 12:51 | PDOC.HOSPP ---
- Subjective Encounter Date: 04/04/20 Encounter Time: 11:30 Subjective: Patient seen and examined for volume overload. Toleraing hemodialysis. No CP or SOB. No new complaints. No overnight events - Objective Vital Signs & Weight: Vital Signs (12 hours) Temp Pulse Resp BP BP Pulse Ox 04/04/20 11:14 97.6 F 61 20 130/56 L 95 04/04/20 08:30 95 04/04/20 08:09 66 04/04/20 07:29 97.8 F 66 20 144/66 H 95 04/04/20 05:50 65 180/72 H 04/04/20 05:46 98.0 F 65 15 180/72 H 94 L 04/04/20 01:40 94 L Weight Weight 229 lb 4.492 oz I&O: 04/03/20 04/04/20 04/05/20 06:59 06:59 06:59 Intake Total 1050 300 Output Total 2350 Balance -1300 300 Result Diagrams: 04/04/20 06:00 04/04/20 06:00 Additional Labs: Accuchecks 04/04/20 04/04/20 04/03/20 10:21 05:58 20:21 POC Glucose 313 H 192 H 399 H 04/03/20 04/03/20 16:57 06:00 POC Glucose 372 H 201 H EKG Reviewed by me: Yes (Tele SR) Hospitalist ROS - Review of Systems Respiratory: denies: cough, dry, shortness of breath, hemoptysis, SOB with excertion, pleuritic pain, sputum, wheezing, other Cardiovascular: denies: chest pain, palpitations, orthopnea, paroxysmal noc. dyspnea, edema, light headedness, other - Medication Medications: Active Medications Generic Name Dose Route Start Last Admin Trade Name Freq PRN Reason Stop Dose Admin Acetaminophen 1,000 mg 04/02/20 18:20 04/04/20 06:05 Tylenol PO 1,000 mg Q6H PRN Administration Moderate to Severe Pain (6-10) Amlodipine Besylate 10 mg 04/01/20 09:00 04/04/20 08:09 Norvasc PO 10 mg DAILY SHANITA Administration Aspirin 81 mg 04/01/20 09:00 04/04/20 08:09 Ecotrin PO 81 mg DAILY SHANITA Administration Atorvastatin Calcium 80 mg 04/01/20 21:00 04/03/20 21:10 Lipitor PO 80 mg HS HSANITA Administration Escitalopram Oxalate 20 mg 04/01/20 09:00 04/04/20 08:09 Lexapro PO 20 mg DAILY SHANITA Administration Furosemide 80 mg 04/01/20 06:00 04/04/20 05:50 Lasix SLOW IVP 80 mg 0600,1400 SHANITA Administration Heparin Sodium (Porcine) 5,000 units 04/01/20 09:00 04/04/20 08:10 Heparin SC 5,000 units TID SHANITA Administration Hydralazine HCl 10 mg 03/31/20 22:04 04/04/20 05:50 Apresoline SLOW IVP 10 mg Q4H PRN Administration SBP Greater Than 170 Insulin Human Lispro 0 units 04/01/20 08:49 04/04/20 10:23 Humalog SC 8 unit .MODERATE SLIDING SC PRN Administration Moderate Correctional Scale Insulin Human Lispro 0 units 04/01/20 08:49 04/03/20 21:11 Humalog SC 5 unit .BEDTIME SLIDING SC PRN Administration Bedtime Correctional Scale Metoprolol Succinate 200 mg 04/01/20 09:00 04/04/20 08:09 Toprol Xl PO 200 mg DAILY SHANITA Administration Nitroglycerin 0.5 inch 04/01/20 09:00 04/04/20 08:09 Nitro-Bid 2% Ointment TOP 0.5 inch BID SHANITA Administration Polyethylene Glycol 17 gm 04/03/20 09:00 04/04/20 08:07 Miralax PO Not Given DAILY SHANITA Sodium Chloride 10 ml 04/01/20 09:00 04/04/20 08:10 Flush - Normal Saline IVF 10 ml Q12HR SHANITA Administration Tramadol HCl 50 mg 04/02/20 18:20 04/03/20 18:19 Ultram PO 50 mg Q12H PRN Administration Pain - Exam General Appearance: NAD Heart: RRR, no gallops Respiratory: no wheezes, rhonchi (at bases) Gastrointestinal: soft, non-tender, non-distended Extremities: 1+ LE edema Hosp A/P - Plan DVT proph w/SCDs Acute on chronic diastolic HF/Volume overload YENIFER on CKD 4 DM2 CAD Metabolic acidosis HTN Dyslipidemia Chronic anemia prob due to renal failure Morbid obesity BMI 41.9 PLAN: Add NPH due to hyperglycemia Cont Amlodipine with Toprol XL DC NTG patch Cont PRN HTN meds Dialysis per Nephrology Await outpt dialysis Cont fluid restriction AM labs
--- NOTE | 2020-04-04 13:05 | EKG ---
Test Reason : Blood Pressure : / mmHG Vent. Rate : 071 BPM Atrial Rate : 071 BPM P-R Int : 198 ms QRS Dur : 090 ms QT Int : 422 ms P-R-T Axes : 008 -14 140 degrees QTc Int : 458 ms Normal sinus rhythm Cannot rule out Anteroseptal infarct , age undetermined T wave abnormality, consider lateral ischemia Abnormal ECG Confirmed by NOEMY TOLEDO DO ([id number]), editor sound MANUEL GUSMAN ([id number]) on 04/04/2020 1:04:54 PM Referred By: Confirmed By:NOEMY TOLEDO DO
[2020-04-04] MEDS: cloNIDine 0.1 MG TAB PO PRN (16:58)
[2020-04-04] MEDS ORDERED: Tuberculin PPD 0.1 ML VIAL I-DERMAL SCH ×2 (18:30)
--- NOTE | 2020-04-04 18:31 | PRG ---
DATE OF SERVICE: 04/04/2020 SUBJECTIVE: Patient is seen and examined in the room. She does not have new complaints. She had dialysis this morning. She tolerated dialysis without complications. OBJECTIVE: VITAL SIGNS: BP 187/74, TX 66/minute, RR 20/mt, oxygen saturation 95% on room air. GENERAL: Patient is comfortable, sitting in chair, not in pain or distress. HEENT: Right IJ TDC noted. left IJ TLC. CVS: Rhythm regular. Normal rate. No murmurs. LUNGS: Decreased at bases. No crackles. No wheezing. ABDOMEN: Soft. No tenderness. Bowel sounds present. EXTREMITIES: 2 to 3+ pitting edema bilaterally. 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 PSYCHIATRIC: Not agitated. LABORATORY DATA: Hemoglobin 7.4, hematocrit 22.1. ASSESSMENT AND PLAN: 1. Chronic kidney disease, stage 5 - now dialysis dependent. The patient had second session of hemodialysis today. Anticipate next dialysis on Monday. 2. Hypertension - volume dependent. The patient is on amlodipine and Toprol-XL. 3. Edema - continue with Lasix 80 mg IV twice a day, improving with hemodialysis. 4. Anemia - we will continue to monitor. Check iron studies. Transfuse PRBC PRN with target Hb>7 Job ID: [id number] [facility]
[2020-04-04] MEDS: Atorvastatin Calcium 40 MG TAB PO SCH (21:00)
[2020-04-04] MEDS: NPH, Human Insulin Isophane 300 UNIT/3 ML VIAL SC SCH (21:01)
[2020-04-04] MEDS: traMADol HCl 50 MG TAB PO PRN (21:02)
[2020-04-05] MEDS: Acetaminophen 500 MG TAB PO PRN (03:58)
[2020-04-05 04:45] LABS: Hemoglobin 7.5 g/dL (12.0-16.0); Platelet Count 276 thou/uL (130-400)
[2020-04-05 05:09] LABS: Anion Gap 12 mmol/L (10-20); BUN (Urea Nitrogen) 30 mg/dL (9.8-20.1); Calc. Creatinine Clearance 25 mL/min (70-130); Calcium 7.7 mg/dL (7.8-10.44); Carbon Dioxide 27 mmol/L (23-31); Chloride 100 mmol/L (98-107); Estimated GFR-MDRD 12; Glucose 216 mg/dL (80-115); Potassium 3.8 mmol/L (3.5-5.1); Sodium 135 mmol/L (136-145)
[2020-04-05] MEDS: Furosemide 100 MG/10 ML VIAL SLOW IVP SCH ×2 (05:19→15:43)
[2020-04-05] MEDS: HumaLOG 300 UNITS/3 ML VIAL SC PRN ×4 (06:03→22:03)
[2020-04-05] MEDS: Amlodipine 10 MG TAB PO SCH (08:37)
[2020-04-05] MEDS: Escitalopram Oxalate 20 mg Tablet PO SCH (08:37)
[2020-04-05] MEDS: NPH, Human Insulin Isophane 300 UNIT/3 ML VIAL SC SCH (08:37)
[2020-04-05] MEDS: Aspirin 81 mg Enteric Coated Tablet PO SCH (08:37)
[2020-04-05] MEDS: Heparin 5,000 UNITS/ML VIAL SC SCH ×3 (08:37→22:03)
[2020-04-05] MEDS: Polyethylene Glycol 3350 17 GM Packet PO SCH (08:38)
[2020-04-05] MEDS: cloNIDine 0.1 MG TAB PO PRN ×2 (11:46→15:47)
--- NOTE | 2020-04-05 14:58 | PDOC.HOSPP ---
- Subjective Encounter Date: 04/05/20 Encounter Time: 14:00 Subjective: Patient seen and examined for CHF/Volume overload. No CP/SOB. No new complaints. No overnight events - Objective Vital Signs & Weight: Vital Signs (12 hours) Temp Pulse Resp BP Pulse Ox 04/05/20 11:41 98.3 F 62 20 183/74 H 93 L 04/05/20 07:35 98.4 F 66 17 187/77 H 95 04/05/20 03:25 98.4 F 70 18 151/67 H 96 Weight Weight 222 lb 7.143 oz I&O: 04/04/20 04/05/20 04/06/20 06:59 06:59 06:59 Intake Total 1050 600 350 Output Total 2350 2300 1000 Balance -1300 -1700 -650 Result Diagrams: 04/05/20 04:00 04/05/20 04:00 Additional Labs: Accuchecks 04/05/20 04/05/20 04/04/20 11:01 05:36 20:43 POC Glucose 330 H 216 H 273 H 04/04/20 17:35 POC Glucose 224 H EKG Reviewed by me: Yes (Tele SR, 2nd deg AV block type 1 earlier) Hospitalist ROS - Review of Systems Cardiovascular: denies: chest pain, palpitations, orthopnea, paroxysmal noc. dyspnea, edema, light headedness, other Gastrointestinal: denies: nausea, vomiting, abdominal pain, diarrhea, constipation, melena, hematochezia, other - Medication Medications: Active Medications Generic Name Dose Route Start Last Admin Trade Name Freq PRN Reason Stop Dose Admin Acetaminophen 1,000 mg 04/02/20 18:20 04/05/20 03:58 Tylenol PO 1,000 mg Q6H PRN Administration Moderate to Severe Pain (6-10) Amlodipine Besylate 10 mg 04/01/20 09:00 04/05/20 08:37 Norvasc PO 10 mg DAILY SHANITA Administration Aspirin 81 mg 04/01/20 09:00 04/05/20 08:37 Ecotrin PO 81 mg DAILY SHANITA Administration Atorvastatin Calcium 80 mg 04/01/20 21:00 04/04/20 21:00 Lipitor PO 80 mg HS SHANITA Administration Clonidine 0.1 mg 04/03/20 10:46 04/05/20 11:46 Catapres PO 0.1 mg Q4H PRN Administration SBP Greater Than 180 Escitalopram Oxalate 20 mg 04/01/20 09:00 04/05/20 08:37 Lexapro PO 20 mg DAILY SHANITA Administration Furosemide 80 mg 04/01/20 06:00 04/05/20 05:19 Lasix SLOW IVP 80 mg 0600,1400 SHANITA Administration Heparin Sodium (Porcine) 5,000 units 04/01/20 09:00 04/05/20 08:37 Heparin SC 5,000 units TID SHANITA Administration Hydralazine HCl 10 mg 03/31/20 22:04 04/04/20 05:50 Apresoline SLOW IVP 10 mg Q4H PRN Administration SBP Greater Than 170 Insulin Human Lispro 0 units 04/01/20 08:49 04/05/20 11:46 Humalog SC 8 unit .MODERATE SLIDING SC PRN Administration Moderate Correctional Scale Insulin Human Lispro 0 units 04/01/20 08:49 04/03/20 21:11 Humalog SC 5 unit .BEDTIME SLIDING SC PRN Administration Bedtime Correctional Scale Insulin Human NPH 10 unit 04/04/20 21:00 04/05/20 08:37 Humulin N SC 10 unit BID SHANITA Administration Polyethylene Glycol 17 gm 04/03/20 09:00 04/05/20 08:38 Miralax PO Not Given DAILY [facility] Sodium Chloride 10 ml 04/01/20 09:00 04/05/20 08:38 Flush - Normal Saline IVF 10 ml Q12HR SHANITA Administration Tramadol HCl 50 mg 04/02/20 18:20 04/04/20 21:02 Ultram PO 50 mg Q12H PRN Administration Pain - Exam General Appearance: NAD Heart: RRR, no gallops Respiratory: no wheezes, no ronchi Gastrointestinal: non-tender, non-distended, normal bowel sounds Extremities: no cyanosis Neurological: no new deficit Hosp A/P - Plan DVT proph w/heparin, DVT proph w/SCDs Acute on chronic diastolic HF/Volume overload -improving with dialysis -on fluid restriction YENIFER on CKD 4/ESRD/Metabolic acidosis -toleraing dialysis DM2 -uncontrolled -on NPH CAD -on ASA/BB 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
--- NOTE | 2020-04-05 17:03 | PRG ---
DATE OF SERVICE: 04/05/2020 SUBJECTIVE: Patient is seen and examined in the room. No acute overnight events. She had hemodialysis yesterday. OBJECTIVE: VITAL SIGNS: Blood pressure 194/77, pulse rate 60 per minute, respiratory rate 20 per minute, oxygen saturation 97% on room air. GENERAL: The patient is comfortable, not in pain or discomfort. HEENT: Right IJ TDC and left IJ TLC. CVS: Rhythm regular, normal rate. No murmurs. LUNGS: Decreased at bases. No wheezing. ABDOMEN: Soft. No tenderness. Bowel sounds present. EXTREMITIES: 1 to 2+ pitting edema bilaterally. 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 PSYCHIATRIC: Not agitated. LABORATORY DATA: Hemoglobin 7.5, hematocrit 23.8. Sodium 135, potassium 3.8, creatinine 3.78. ASSESSMENT AND PLAN: 1. Chronic kidney disease, stage 5 - not dialysis dependent. The patient had 2 dialysis sessions so far. Anticipate dialysis tomorrow. 2. Hypertension - volume dependent. Continue with amlodipine and Toprol-XL. We will titrate antihypertensives with target SBP 130 to 140. 3. Edema - resolving. Continue with Lasix 80 mg twice a day. Anticipate to improve with ultrafiltration. 4. Anemia - continue to monitor and transfuse packed red blood cell p.r.n. Follow iron studies. Job ID: [id number] [facility]
[2020-04-05] MEDS ORDERED: NPH, Human Insulin Isophane 300 UNIT/3 ML VIAL SC SCH (21:00)
[2020-04-05] MEDS: Atorvastatin Calcium 40 MG TAB PO SCH (22:03)
[2020-04-06] MEDS: cloNIDine 0.1 MG TAB PO PRN (04:14)
[2020-04-06 04:15] LABS: Anion Gap 14 mmol/L (10-20); BUN (Urea Nitrogen) 39 mg/dL (9.8-20.1); Calc. Creatinine Clearance 18 mL/min (70-130); Calcium 7.9 mg/dL (7.8-10.44); Carbon Dioxide 27 mmol/L (23-31); Chloride 99 mmol/L (98-107); Estimated GFR-MDRD 9; Glucose 111 mg/dL (80-115); Magnesium 1.7 mg/dL (1.6-2.6); Potassium 3.6 mmol/L (3.5-5.1); Sodium 136 mmol/L (136-145)
[2020-04-06] MEDS: Furosemide 100 MG/10 ML VIAL SLOW IVP SCH ×2 (05:01→13:26)
[2020-04-06 05:47] LABS: #Basophils 0.1 thou/uL (0.0-0.2); #Eosinphils 0.4 thou/uL (0.0-0.7); #Lymphocytes 1.9 thou/uL (1.20-3.40); #Neutrophils 3.5 thou/uL (1.40-6.50); %Basophils 1.3 % (0.0-1.0); %Eosinophils 5.6 % (0.0-10.0); %Neutrophils 51.1 % (42.0-75.0); Hemoglobin 7.7 g/dL (12.0-16.0); Mean Corpuscular HGB CONC 33.1 g/dL (32.0-36.0); Mean Corpuscular Hemoglobin 28.9 pg (27.0-31.0); Mean Corpuscular Volume 87.4 fL (78.0-98.0); Mean Platelet Volume 7.9 fL (7.4-10.4); Platelet Count 265 thou/uL (130-400); RBC Distribution Width 15.9 % (11.5-14.5); Red Blood Cell (RBC) Count 2.67 mill/uL (4.20-5.40); White Blood Cell (WBC) Count 6.8 thou/uL (4.8-10.8)
[2020-04-06] MEDS: traMADol HCl 50 MG TAB PO PRN ×2 (07:24→21:20)
[2020-04-06] MEDS ORDERED: READ PPD TEST SITE PO SCH (09:00)
[2020-04-06] MEDS ORDERED: Heparin 10,000 UNITS/ 10 ML VIAL ONE (09:02)
[2020-04-06] MEDS: Heparin 5,000 UNITS/ML VIAL SC SCH ×3 (09:27→21:20)
[2020-04-06] MEDS: hydrALAZINE 25 MG TAB PO SCH ×3 (09:28→21:20)
[2020-04-06] MEDS: Aspirin 81 mg Enteric Coated Tablet PO SCH (12:40)
[2020-04-06] MEDS: Escitalopram Oxalate 20 mg Tablet PO SCH (12:41)
[2020-04-06] MEDS: Amlodipine 10 MG TAB PO SCH (12:41)
[2020-04-06] MEDS: cloNIDine 0.1 MG TAB PO SCH ×2 (12:48→21:20)
[2020-04-06] MEDS: Polyethylene Glycol 3350 17 GM Packet PO SCH (12:49)
[2020-04-06] MEDS: NPH, Human Insulin Isophane 300 UNIT/3 ML VIAL SC SCH (12:50)
[2020-04-06] MEDS ORDERED: Epoetin (ESRD) 20,000 UNITS/ML SC ONE (13:00)
[2020-04-06] MEDS ORDERED: EPOETIN ALFA-EPBX (ESRD) 10,000 UNIT/ML VIAL SC SCH (13:00)
--- NOTE | 2020-04-06 14:24 | PRG ---
DATE OF SERVICE: 04/06/2020 SUBJECTIVE: Patient was seen and examined at bedside and overnight events noted. Patient denies any shortness of breath or chest pain or palpitation. No history of nausea or vomiting or diarrhea or fever or chills or cramps. OBJECTIVE: GENERAL: This is morbidly obese female, in no apparent distress. VITAL SIGNS: Temperature 97.4. Heart rate 65. Respiratory rate 18. Blood pressure 203/81. HEENT: Atraumatic, normocephalic. Oral mucosa is moist. NECK: Supple. CARDIOVASCULAR: S1, S2 heard. Rate and rhythm regular. RESPIRATORY: Clear to auscultation. GASTROINTESTINAL: Abdomen is soft. MUSCULOSKELETAL: No tenderness. No edema. DERMATOLOGIC: No skin rash. NEUROLOGIC: Alert and awake and oriented x3. No focal neurologic deficits. Moving all the extremities. PSYCHIATRIC: Mood and affect normal. LABORATORY DATA: Potassium 3.6, BUN is 39, and creatinine is 5.03. ASSESSMENT AND PLAN: 1. End-stage renal disease. Continue on dialysis as tolerated. 2. Hypertension. 3. Edema. 4. Anemia of chronic disease. Plan to continue on dialysis as tolerated. Job ID: [id number]
--- NOTE | 2020-04-06 17:23 | PDOC.HOSPP ---
- Subjective Encounter Date: 04/06/20 Encounter Time: 16:40 Subjective: Patient seen and examined for CHF. No CP/SOB at rest. No new complaints. No overnight events - Objective Vital Signs & Weight: Vital Signs (12 hours) Temp Pulse Resp BP BP Pulse Ox 04/06/20 15:27 98.3 F 62 18 177/76 H 93 L 04/06/20 12:42 180/75 H 04/06/20 12:00 97.4 F L 65 18 203/81 H 97 04/06/20 07:21 98.2 F 61 18 193/82 H 94 L Weight Weight 222 lb 4.8 oz I&O: 04/05/20 04/06/20 04/07/20 06:59 06:59 06:59 Intake Total 600 1348 Output Total 2300 3550 Balance -1700 -2202 Result Diagrams: 04/07/20 07:40 04/07/20 07:40 Additional Labs: Accuchecks 04/06/20 04/06/20 04/06/20 16:51 11:26 05:33 POC Glucose 258 H 149 H 106 04/05/20 20:28 POC Glucose 220 H EKG Reviewed by me: Yes (Tele SR) Hospitalist ROS - Review of Systems Respiratory: denies: cough, dry, shortness of breath, hemoptysis, SOB with excertion, pleuritic pain, sputum, wheezing, other Cardiovascular: denies: chest pain, palpitations, orthopnea, paroxysmal noc. dyspnea, edema, light headedness, other Gastrointestinal: denies: nausea, vomiting, abdominal pain, diarrhea, constipation, melena, hematochezia, other - Medication Medications: Active Medications Generic Name Dose Route Start Last Admin Trade Name Freq PRN Reason Stop Dose Admin Acetaminophen 1,000 mg 04/02/20 18:20 04/05/20 03:58 Tylenol PO 1,000 mg Q6H PRN Administration Moderate to Severe Pain (6-10) Amlodipine Besylate 10 mg 04/01/20 09:00 04/06/20 12:41 Norvasc PO 10 mg DAILY SHANITA Administration Aspirin 81 mg 04/01/20 09:00 04/06/20 12:40 Ecotrin PO 81 mg DAILY SHANITA Administration Atorvastatin Calcium 80 mg 04/01/20 21:00 04/05/20 22:03 Lipitor PO 80 mg HS SHANITA Administration Clonidine 0.1 mg 04/03/20 10:46 04/06/20 04:14 Catapres PO 0.1 mg Q4H PRN Administration SBP Greater Than 180 Clonidine 0.1 mg 04/06/20 09:00 04/06/20 12:48 Catapres PO 0.1 mg BID SHANITA Administration Escitalopram Oxalate 20 mg 04/01/20 09:00 04/06/20 12:41 Lexapro PO 20 mg DAILY SHANITA Administration Furosemide 80 mg 04/01/20 06:00 04/06/20 13:26 Lasix SLOW IVP 80 mg 0600,1400 SHANITA Administration Heparin Sodium (Porcine) 5,000 units 04/01/20 09:00 04/06/20 15:33 Heparin SC 5,000 units TID SHANITA Administration Hydralazine HCl 10 mg 03/31/20 22:04 04/04/20 05:50 Apresoline SLOW IVP 10 mg Q4H PRN Administration SBP Greater Than 170 Hydralazine HCl 75 mg 04/06/20 09:00 04/06/20 15:32 Apresoline PO 75 mg TID SHANITA Administration Insulin Human Lispro 0 units 04/01/20 08:49 04/05/20 17:30 Humalog SC 4 unit .MODERATE SLIDING SC PRN Administration Moderate Correctional Scale Insulin Human Lispro 0 units 04/01/20 08:49 04/05/20 22:03 Humalog SC 2 unit .BEDTIME SLIDING SC PRN Administration Bedtime Correctional Scale Insulin Human NPH 15 unit 04/05/20 21:00 04/05/20 22:04 Humulin N SC 15 unit HS SHANITA Administration Insulin Human NPH 20 unit 04/06/20 09:00 04/06/20 12:50 Humulin N SC 20 unit QAM SHANITA Administration Metoprolol Succinate 50 mg 04/06/20 09:00 04/06/20 12:56 Toprol Xl PO 50 mg DAILY SHANITA Administration Polyethylene Glycol 17 gm 04/03/20 09:00 04/06/20 12:49 Miralax PO Not Given DAILY SHANITA Sodium Chloride 10 ml 04/01/20 09:00 04/06/20 12:49 Flush - Normal Saline IVF 10 ml Q12HR SHANITA Administration Tramadol HCl 50 mg 04/02/20 18:20 04/06/20 07:24 Ultram PO 50 mg Q12H PRN Administration Pain - Exam General Appearance: NAD Neck: supple, no JVD Heart: RRR, no gallops Respiratory: no wheezes, no rales Gastrointestinal: soft, normal bowel sounds, no guarding, no rigidity Extremities: no cyanosis, 1+ LE edema Hosp A/P - Plan DVT proph w/heparin Volume overload due to ESRD -improving with dialysis -on fluid restriction YENIFER on CKD 4/ESRD/Metabolic acidosis -toleraing dialysis DM2 -uncontrolled -on NPH CAD -on ASA/BB 2nd deg AV block type 1 (04/05) -no new episodes after reducing Toprol dose HTN Dyslipidemia -on Statins Chronic anemia prob due to renal failure Morbid obesity BMI 41.9 PLAN: DC IV Lasix Increase Toprol XL to 50 mg BID due to uncontrolled HTN Reduce PM NPH to 10 units Cont PO Hydralazine and Clonidine Cont Amlodipine Dialysis per Nephrology Cont fluid restriction AM labs Await outpt dialysis
[2020-04-06] MEDS ORDERED: NPH, Human Insulin Isophane 300 UNIT/3 ML VIAL SC SCH (21:00)
[2020-04-06] MEDS: HumaLOG 300 UNITS/3 ML VIAL SC PRN (21:20)
[2020-04-06] MEDS: Atorvastatin Calcium 40 MG TAB PO SCH (21:20)
[2020-04-07] MEDS: hydrALAZINE 20 MG/ML VIAL SLOW IVP PRN (00:05)
[2020-04-07 08:16] LABS: Anion Gap 12 mmol/L (10-20); BUN (Urea Nitrogen) 26 mg/dL (9.8-20.1); Calc. Creatinine Clearance 27 mL/min (70-130); Calcium 8.3 mg/dL (7.8-10.44); Carbon Dioxide 28 mmol/L (23-31); Chloride 98 mmol/L (98-107); Estimated GFR-MDRD 13; Glucose 104 mg/dL (80-115); Sodium 134 mmol/L (136-145)
[2020-04-07 08:18] LABS: #Basophils 0.1 thou/uL (0.0-0.2); #Eosinphils 0.4 thou/uL (0.0-0.7); #Monocytes 1.1 thou/uL (0.11-0.59); #Neutrophils 4.4 thou/uL (1.40-6.50); %Basophils 0.8 % (0.0-1.0); %Eosinophils 5.5 % (0.0-10.0); %Lymphocytes 24.8 % (21.0-51.0); %Monocytes 13.3 % (0.0-10.0); %Neutrophils 55.7 % (42.0-75.0); Hemoglobin 7.8 g/dL (12.0-16.0); Mean Corpuscular HGB CONC 31.9 g/dL (32.0-36.0); Mean Corpuscular Hemoglobin 28.3 pg (27.0-31.0); Mean Corpuscular Volume 88.9 fL (78.0-98.0); Platelet Count 297 thou/uL (130-400); RBC Distribution Width 16.3 % (11.5-14.5); Red Blood Cell (RBC) Count 2.77 mill/uL (4.20-5.40); White Blood Cell (WBC) Count 7.9 thou/uL (4.8-10.8)
[2020-04-07] MEDS ORDERED: Heparin 10,000 UNITS/ 10 ML VIAL ONE (08:53)
[2020-04-07] MEDS ORDERED: EPOETIN ALFA-EPBX (ESRD) 10,000 UNIT/ML VIAL IVP SCH (09:00)
[2020-04-07] MEDS: hydrALAZINE 25 MG TAB PO SCH ×2 (09:15→11:52)
[2020-04-07] MEDS: Heparin 5,000 UNITS/ML VIAL SC SCH (09:15)
[2020-04-07 11:47] VITALS: BP 171/71; TEMP 97.7
[2020-04-07] MEDS: cloNIDine 0.1 MG TAB PO SCH (11:50)
[2020-04-07] MEDS: Aspirin 81 mg Enteric Coated Tablet PO SCH (11:50)
[2020-04-07] MEDS: Escitalopram Oxalate 20 mg Tablet PO SCH (11:51)
[2020-04-07] MEDS: Amlodipine 10 MG TAB PO SCH (11:52)
[2020-04-07] MEDS: NPH, Human Insulin Isophane 300 UNIT/3 ML VIAL SC SCH (11:53)
[2020-04-07] MEDS: Polyethylene Glycol 3350 17 GM Packet PO SCH (11:55)
[2020-04-07] MEDS ORDERED: Epoetin (ESRD) 20,000 UNITS/ML IVP SCH (12:33)
--- NOTE | 2020-04-07 18:39 | PRG ---
DATE OF SERVICE: 04/07/2020 SUBJECTIVE: Patient was seen and examined at bedside and overnight events noted. Patient denies any shortness of breath or chest pain or palpitation. No history of nausea or vomiting or diarrhea or fever or chills or cramps. OBJECTIVE: GENERAL: This is a well-built female, in no apparent distress. VITAL SIGNS: Temperature 97.7. Heart Rate 60. Respiratory rate 18. Blood pressure . HEENT: Atraumatic, normocephalic. Oral mucosa is moist. NECK: Supple. CARDIOVASCULAR: S1, S2 heard. Rate and rhythm regular. RESPIRATORY: Clear to auscultation. GASTROINTESTINAL: Abdomen is soft. MUSCULOSKELETAL: No tenderness. No edema. DERMATOLOGIC: No skin rash. NEUROLOGIC: Alert and awake and oriented x3. No focal neurologic deficits. Moving all the extremities. Psychiatric: Mood and affect normal. LABORATORY DATA: Potassium 4.0, BUN is 26, and creatinine is 3.4. ASSESSMENT AND PLAN: 1. End-stage renal disease. Continue on dialysis as tolerated. 2. Hypertension. 3. Edema. 4. Anemia of chronic disease. Continue on dialysis as tolerated. Job ID: [id number]
--- NOTE | 2020-04-08 08:42 | DIS ---
DATE OF ADMISSION: 03/31/2020 DATE OF DISCHARGE: 04/07/2020 DISCHARGE DISPOSITION: Home. FOLLOWUP: 1. Follow up with primary care physician at [facility] in 1 week. 2. Follow up with Dr. Rios and Dr. Goodrich as scheduled. ALLERGIES: NO KNOWN DRUG ALLERGIES. PHYSICAL EXAMINATION: The patient was seen and examined on the day of discharge. Denies any new complaints. No chest pain, shortness of breath, palpitations, fever, or chills reported. Vital signs showed temperature 97.6 with pulse rate of 57, respirations 20, blood pressure in 150s with O2 saturation 96% on room air. DISCHARGE MEDICATIONS: 1. Toprol-XL 100 mg daily. 2. Hydralazine 50 mg four times a day. 3. Clonidine as needed. 4. Amlodipine 10 mg daily. All other home medications were left unchanged. Please note that Toprol-XL dose was reduced to 100 mg daily due to AV block. BRIEF HOSPITAL COURSE: The patient is a 64-year-old female with hypertension, hyperlipidemia, coronary artery disease, and CKD, presented to the hospital with shortness of breath. Her workup was consistent with volume overload. She was started on IV diuretics with minimal response. Echocardiogram showed ejection fraction of 55% to 60% with mild concentric left ventricular hypertrophy and diastolic dysfunction, mild mitral regurgitation, and mild tricuspid regurgitation. The patient was evaluated by Nephrology, who recommended initiation of hemodialysis. She underwent right IJ cuffed dialysis catheter placed along with left arm fistula by Dr. Rios. She has been tolerating dialysis. She has been cleared by consultants for discharge. Outpatient dialysis has been arranged. FINAL DIAGNOSES: 1. Volume overload due to ESRD. 2. Acute kidney injury on chronic kidney disease, stage 4/end-stage renal disease, started on dialysis. 3. Metabolic acidosis. 4. Hypertension. 5. Diabetes mellitus, type 2. 6. Coronary artery disease. 7. Second-degree atrioventricular block type 1, which happened on 05 April. Toprol dose was reduced. The patient did not have recurrence of atrioventricular block after this. 8. Morbid obesity with a BMI of 41.9. 9. Dyslipidemia. 10. Chronic anemia, probably due to renal insufficiency. The patient understands the above plan of care. Job ID: [id number] MTDD
== END 2020-04-07 15:30 | disposition home or self-care (01) | DRG 264 ==
LOC: ERS 15:40 → 2NO 21:11
PROVIDERS: ADMIT Internal Medicine; ATTEND Internal Medicine
PROC: 031C0ZF Bypass Left Radial Artery to Lower Arm Vein, Open Approach (ICD-10-PCS; principal; 2020-04-02)
PROC: 0JH63XZ Insertion of Tunneled Vascular Access Device into Chest Subcutaneous Tissue and Fascia, Percutaneous Approach (ICD-10-PCS; 2020-04-02)
PROC: 02HV33Z Insertion of Infusion Device into Superior Vena Cava, Percutaneous Approach (ICD-10-PCS; 2020-04-02)
PROC: B548ZZA Ultrasonography of Superior Vena Cava, Guidance (ICD-10-PCS; 2020-04-02)
PROC: B5181ZA Fluoroscopy of Superior Vena Cava using Low Osmolar Contrast, Guidance (ICD-10-PCS; 2020-04-02)
PROC: 5A1D70Z Performance of Urinary Filtration, Intermittent, Less than 6 Hours Per Day (ICD-10-PCS; 2020-04-03)
PROC: 5A1D70Z Performance of Urinary Filtration, Intermittent, Less than 6 Hours Per Day (ICD-10-PCS; 2020-04-04)
PROC: 5A1D70Z Performance of Urinary Filtration, Intermittent, Less than 6 Hours Per Day (ICD-10-PCS; 2020-04-06)
PROC: 5A1D70Z Performance of Urinary Filtration, Intermittent, Less than 6 Hours Per Day (ICD-10-PCS; 2020-04-07)
DX: I13.2 Hypertensive heart and chronic kidney disease with heart failure and with stage 5 chronic kidney disease, or end stage renal disease (principal); I50.33 Acute on chronic diastolic (congestive) heart failure; N18.6 End stage renal disease; N17.9 Acute kidney failure, unspecified; J90 Pleural effusion, not elsewhere classified; E87.2 Acidosis; Z68.41 Body mass index [BMI] 40.0-44.9, adult; E11.22 Type 2 diabetes mellitus with diabetic chronic kidney disease; E78.5 Hyperlipidemia, unspecified; D63.1 Anemia in chronic kidney disease; E66.01 Morbid (severe) obesity due to excess calories; I08.1 Rheumatic disorders of both mitral and tricuspid valves; I44.1 Atrioventricular block, second degree; E78.00 Pure hypercholesterolemia, unspecified; I25.10 Atherosclerotic heart disease of native coronary artery without angina pectoris; Z79.4 Long term (current) use of insulin; Z95.1 Presence of aortocoronary bypass graft
CPT/HCPCS: 36415; 36416; 71045; 71046; 76000; 80048; 80053; 82550; 83036; 83690; 83735; 83880; 84484; 85014; 85018; 85025; 85049; 85610; 85730; 86580; 86704; 86706; 86803; 87340; 90935; 93005; 93306; 93970; 96374; 96375; C1752; G0257; G0365; J0360; J0670; J0690; J1644; J1815; J1940; J2001; J2704; J2720; J3010; J3475; J3490; Q5105; S0020

== ENCOUNTER 2020-05-05 08:45 | Day surgery (SDC) | payer SELFPAY ==
[2020-04-28 11:28] VITALS: BMI 39.6
--- NOTE | 2020-05-05 10:16 | HP ---
HISTORY OF PRESENT ILLNESS: Aruna Valdez is a 64-year-old female, dialyzes at [facility], Monday, Monday, and Monday, followed by [facility], presented with chronic kidney disease, need to initiate dialysis, followed by Dr. Blair and I placed a cuffed tunneled hemodialysis catheter and left arm fistula. This was performed on 04/02/2020. Her cephalic vein outflow was poor, unreliable. Basilic vein seemed more dominant and she is morbidly obese, 209 pounds, 5 feet 2 inches. Plan is for basilic vein transposition fistula under regional TIVA versus general anesthesia. Risks and benefits discussed. She consents. We will plan this as an outpatient on a nondialysis day Monday. ALLERGIES: NONE. SOCIAL HISTORY: Tobacco and alcohol, none. MEDICATIONS: 1. Insulin. 2. Hydralazine. 3. Lexapro. 4. Amlodipine. 5. Metoprolol. 6. Aspirin. 7. Atorvastatin. PAST SURGICAL HISTORY: Coronary artery bypass grafting 2016, followed by Dr. Arita; hemodialysis catheter and left arm fistula more recently. PAST MEDICAL HISTORY: Diabetes mellitus; hypertension; coronary artery disease, stable; end-stage renal disease. She has never had a colonoscopy. REVIEW OF SYSTEMS: Otherwise unremarkable. FAMILY HISTORY: Unremarkable. PHYSICAL EXAMINATION: VITAL SIGNS: 209 pounds, 5 feet 2 inches, 114/39, 72. HEAD, EARS, EYES, NOSE, AND THROAT: Unremarkable. LUNGS: Clear to auscultation. CARDIAC: Regular rate and rhythm without murmur or gallop. ABDOMEN: Soft, obese. EXTREMITIES: Obese upper extremities, good thrill and bruit in her left upper arm fistula. ASSESSMENT AND PLAN: 1. Dysfunctional fistula, morbid obesity, unreliable cephalic vein outflow. Plan basilic vein transposition fistula outpatient. She understands risks and benefits and consents. 2. Diabetes mellitus. 3. Hypertension. 4. End-stage renal disease. 5. Metabolic syndrome, morbid obesity. Job ID: [id number]
[2020-05-05] MEDS ORDERED: Insulin Regular 300 UNITS/3 ML VIAL ONE (10:27)
[2020-05-05] MEDS ORDERED: Fentanyl 100 MCG/2 ML VIAL ONE ×2 (10:28→12:41)
[2020-05-05] MEDS ORDERED: Heparin 5,000 UNITS/ML VIAL ONE (11:14)
[2020-05-05] MEDS ORDERED: Bupivacaine PF 0.5% 30 ML VIAL ONE (11:14)
[2020-05-05] MEDS ORDERED: Lidocaine 1% w/Epinephrine 1:100K 20 ML VIAL ONE (11:14)
[2020-05-05] MEDS ORDERED: Protamine Sulfate 50 MG/5 ML VIAL ONE (11:14)
[2020-05-05] MEDS ORDERED: PROPOFOL 20 ML ONE (12:41)
[2020-05-05] MEDS ORDERED: Bupivacaine HCl 0.5%/Epinephrine 1:200,000/PF 30 ml Vial ONE (14:15)
[2020-05-05] MEDS ORDERED: Lidocaine 1% PF 5 ML VIAL ONE (14:15)
[2020-05-05] MEDS ORDERED: PROPOFOL 200 MG/20 ML VIAL ONE (14:15)
[2020-05-05] MEDS ORDERED: Heparin 10,000 UNITS/ 10 ML VIAL ONE (15:33)
--- NOTE | 2020-05-05 15:56 | OP ---
DATE OF PROCEDURE: 05/05/2020 PREOPERATIVE DIAGNOSES: 1. End-stage renal disease. 2. Morbid obesity. 3. Need a basilic vein transposition fistula. POSTOPERATIVE DIAGNOSES: 1. End-stage renal disease. 2. Morbid obesity. 3. Need a basilic vein transposition fistula. PROCEDURE PERFORMED: Left arm basilic vein transposition fistula. ANESTHESIA: Regional, TIVA, local with 0.5% Marcaine 30 mL, mixed with 1% Xylocaine with epinephrine 20 mL. DESCRIPTION OF PROCEDURE: The patient was taken to the operating room where under regional anesthesia and intravenous sedation, left upper extremity was prepared with ChloraPrep and draped in routine fashion. Incision was made from the proximal volar forearm to the axilla, carried down to skin and subcutaneous tissue to the deep fascia, identifying the basilic vein, dissected free, dividing the branch between 4-0 silk ties and clips, mobilizing into the axilla, marking it with a sharpie marker to prevent torsion the cephalic vein stump, which was patent and was dissected free. A tunnel was made with a Mimi Wick tunneler, 12 head superficially over the anterior arm and brought in and then the patient was given 6000 units of heparin intravenously by Anesthesia. Basilic vein origin was then clamped and divided and flushed with heparinized saline solution. It dilated nicely and was connected to the Mimi Wick tunneler, brought through the tunnel, disconnected and flushed and it flushed well. An atraumatic bulldog vascular clamp applied. The cephalic vein stump identified, dissected free, and as this was arterialized proximal radial artery, it was spatulated as well as the basilic vein and the anastomosis created with continuous suture of 6-0 Prolene, completing the anastomosis, releasing the clamps, noting excellent flow on the fistula, it was properly positioned. The patient was given 50 mg of protamine by Anesthesia. Surgicel placed in the vein harvest bed. Good hemostasis noted and obtained with cautery and clips. Subcutaneous tissue was approximated with 3-0 Monocryl and maribel and sterile dressing applied. The patient tolerated the procedure well. Job ID: [id number]
== END 2020-05-05 16:28 | disposition home or self-care (01) ==
LOC: SDC 08:45
PROVIDERS: ATTEND Specialist
PROC: 05SC3ZZ Reposition Left Basilic Vein, Percutaneous Approach (ICD-10-PCS; principal; 2020-05-05)
DX: I12.0 Hypertensive chronic kidney disease with stage 5 chronic kidney disease or end stage renal disease (principal); E11.22 Type 2 diabetes mellitus with diabetic chronic kidney disease; N18.6 End stage renal disease; E66.01 Morbid (severe) obesity due to excess calories; Z68.39 Body mass index [BMI] 39.0-39.9, adult; Z79.4 Long term (current) use of insulin; Z79.82 Long term (current) use of aspirin; Z79.899 Other long term (current) drug therapy; Z95.1 Presence of aortocoronary bypass graft
CPT/HCPCS: 36416; J0670; J0690; J1644; J1815; J2704; J2720; J3010; S0020

== ENCOUNTER 2020-11-26 08:17 | Day surgery (SDC) | payer MEDICARE ==
[2020-11-25 12:59] VITALS: BMI 36.1
[2020-11-26 10:09] VITALS: BP 149/64; TEMP 97.8
--- NOTE | 2020-11-26 12:06 | SPC ---
Dialysis fistulogram left upper extremity Sonographic guided vascular access HISTORY: Renal failure. Poor maturation of left upper arm dialysis fistula with increasingly difficul t access. FINDINGS: After explaining the procedure and answering all questions, sonographic survey of the left upper arm fistula was performed. Arteriovenous anastomosis just below the level of the antecubital fossa was visualized with good flow to the transposed basilic vein fistula overlying the biceps. The vein lies deep within the subcutaneous tissue. Some narrowing of the vein was noticed at the antecubital fossa, so vascular access was planned to be directed towards the arterial inflow for bett er evaluation and potential intervention at this area. Sterile technique, buffered local anesthesia, sonographic guidance, and a 22-gauge needle were used t o carefully access the dialysis fistula at the level of the mid humeral shaft, directed towards the arterial inflow. A more central access was unable to be achieved due to the depth of the vein. A 4 Maori micropuncture sheath was placed for imaging. Contrast injection showed vigorous flow throughout the graft and through the subclavian vein and supe rior vena cava. No focal areas of narrowing. Reflux arteriography showed the arterial anastomosis to be widely patent. There was long segment rela tively small caliber of the vein at the level of the antecubital fossa without a focal stricture apparent. Given the vigorous arterial inflow and the long segment of the narrowing, balloon dilatation was not performed, as damage to the vein would be much more likely than a successful dilatation. Catheter was removed and hemostasis obtained using direct pressure. Patient tolerated the procedure w ell and was eventually dismissed in good condition. IMPRESSION : Good flow and function of the transposed left upper arm basilic dialysis fistula. No intervention nee ded. Perhaps the depth and size of the venous fistula is the cause of difficult access. The more periphera l portion of the vein, at the level of the distal humerus, is much more superficial and slightly larger. Findings were called to Dr. Rios at the time the exam.
[2020-11-26] MEDS ORDERED: Heparin 1,000 UNITS/ML VIAL ONE (16:41)
[2020-11-26] MEDS ORDERED: Iopamidol 300 61% 100 ML VIAL FS ONE (18:05)
== END 2020-11-26 10:00 | disposition home or self-care (01) ==
LOC: SPEC 08:17
PROVIDERS: ATTEND Specialist
PROC: B51W1ZZ Fluoroscopy of Dialysis Shunt/Fistula using Low Osmolar Contrast (ICD-10-PCS; principal; 2020-11-26)
DX: I13.11 Hypertensive heart and chronic kidney disease without heart failure, with stage 5 chronic kidney disease, or end stage renal disease (principal); E11.22 Type 2 diabetes mellitus with diabetic chronic kidney disease; N18.6 End stage renal disease; F41.9 Anxiety disorder, unspecified; F32.9 Major depressive disorder, single episode, unspecified; E66.9 Obesity, unspecified; Z68.36 Body mass index [BMI] 36.0-36.9, adult; Z86.73 Personal history of transient ischemic attack (TIA), and cerebral infarction without residual deficits; Z79.4 Long term (current) use of insulin; Z79.82 Long term (current) use of aspirin; Z79.899 Other long term (current) drug therapy; Z95.1 Presence of aortocoronary bypass graft; Z99.2 Dependence on renal dialysis
CPT/HCPCS: 36901; 76937; J1644; Q9967

== ENCOUNTER 2021-02-28 20:55 | Inpatient (IN) | payer MEDICARE ==
[~2021-02-28 20:55] MED LIST: Iopamidol-370 76% 500 ML 1 ML ONE
[2021-02-28] MEDS ORDERED: Aspirin 325 MG TAB ONE (22:09)
[2021-02-28] MEDS ORDERED: hydrALAZINE 20 MG/ML VIAL ONE (22:09)
[2021-02-28 22:16] LABS: #Eosinphils 0.2 thou/uL (0.0-0.7); #Lymphocytes 1.4 thou/uL (1.20-3.40); #Monocytes 1.1 thou/uL (0.11-0.59); #Neutrophils 15.6 thou/uL (1.40-6.50); %Basophils 0.1 % (0.0-1.0); %Eosinophils 1.1 % (0.0-10.0); %Lymphocytes 7.5 % (21.0-51.0); %Monocytes 5.9 % (0.0-10.0); %Neutrophils 85.5 % (42.0-75.0); Hemoglobin 10.2 g/dL (12.0-16.0); Mean Corpuscular HGB CONC 32.8 g/dL (32.0-36.0); Mean Corpuscular Volume 94.5 fL (78.0-98.0); Platelet Count 347 thou/uL (130-400); RBC Distribution Width 14.3 % (11.5-14.5); White Blood Cell (WBC) Count 18.2 thou/uL (4.8-10.8)
[2021-02-28 22:35] LABS: ALT (SGPT) 19 U/L (8-55); AST (SGOT) 14 U/L (5-34); Alkaline Phosphatase 116 U/L (40-110); Anion Gap 21 mmol/L (10-20); BUN (Urea Nitrogen) 61 mg/dL (9.8-20.1); Bilirubin, Total 0.5 mg/dL (0.2-1.2); CK (CPK) 57 U/L (29-168); Calc. Creatinine Clearance 0 mL/min (70-130); Carbon Dioxide 19 mmol/L (23-31); Chloride 101 mmol/L (98-107); Globulin 3.3 g/dL (2.4-3.5); Glucose 405 mg/dL (80-115); Lipase 94 U/L (8-78); Potassium 5.1 mmol/L (3.5-5.1); Protein, Total 7.3 g/dL (5.8-8.1); Sodium 136 mmol/L (136-145)
[2021-02-28] MEDS ORDERED: Acetaminophen 500 MG TAB ONE (22:36)
[2021-02-28] MEDS ORDERED: cefTRIAXone\\ROCEPHIN 1 GM VIAL ONE (22:36)
[2021-02-28] MEDS ORDERED: Azithromycin 500 MG VIAL ONE (22:36)
[2021-02-28] MEDS ORDERED: Aspirin Chewable 81 MG TAB ONE (22:36)
[2021-03-01] MEDS ORDERED: hydrALAZINE 20 MG/ML VIAL ONE (00:24)
[2021-03-01] MEDS ORDERED: Nitroglycerin 2% Ointment 1 INCH/1 GM Packet ONE (02:47)
[2021-03-01] MEDS ORDERED: cloNIDine 0.1 MG TAB PO PRN (03:18)
[2021-03-01] MEDS ORDERED: Nitroglycerin 0.4 MG TAB (25 Tab Bottle) SL PRN (03:19)
[2021-03-01] MEDS ORDERED: Ondansetron PF 4 MG/2 ML Vial IVP PRN (03:19)
[2021-03-01] MEDS ORDERED: Acetaminophen 325 MG TAB PO PRN (03:19)
[2021-03-01] MEDS ORDERED: HYDROcodone/Acetaminophen 5/325 mg Tablet PO PRN (03:19)
[2021-03-01] MEDS ORDERED: Bisacodyl 5 MG TAB PO PRN (03:19)
[2021-03-01] MEDS ORDERED: Labetalol HCl 100 MG/20 ML VIAL SLOW IVP PRN (03:23)
[2021-03-01] MEDS ORDERED: hydrALAZINE 20 MG/ML VIAL SLOW IVP PRN (03:23)
[2021-03-01] MEDS ORDERED: Aspirin 325 MG TAB PO SCH (03:30)
[2021-03-01] MEDS ORDERED: Morphine 4 MG/ML VIAL SLOW IVP PRN (03:47)
[2021-03-01 05:20] VITALS: BMI 38.9
[2021-03-01] MEDS: Heparin 5,000 UNITS/ML VIAL SC SCH ×2 (05:26→19:57)
[2021-03-01] MEDS: Nitroglycerin 2% Ointment 1 INCH/1 GM Packet TOP SCH ×3 (05:27→23:05)
[2021-03-01] MEDS: HumaLOG 300 UNITS/3 ML VIAL SC PRN ×3 (06:40→23:01)
[2021-03-01 07:05] LABS: #Eosinphils 0.1 thou/uL (0.0-0.7); %Basophils 0.1 % (0.0-1.0); %Eosinophils 0.5 % (0.0-10.0); %Lymphocytes 15.2 % (21.0-51.0); %Monocytes 7.7 % (0.0-10.0); %Neutrophils 76.5 % (42.0-75.0); Mean Corpuscular HGB CONC 33.9 g/dL (32.0-36.0); Mean Corpuscular Hemoglobin 32.3 pg (27.0-31.0); Mean Corpuscular Volume 95.2 fL (78.0-98.0); Mean Platelet Volume 7.3 fL (7.4-10.4); Platelet Count 314 thou/uL (130-400); RBC Distribution Width 14.3 % (11.5-14.5); Red Blood Cell (RBC) Count 2.78 mill/uL (4.20-5.40); White Blood Cell (WBC) Count 13.1 thou/uL (4.8-10.8)
[2021-03-01 07:21] LABS: Troponin I 0.033 ng/mL (< 0.028)
[2021-03-01 07:26] LABS: Cardiac Risk 3.7 (Less than 4.5)
[2021-03-01] MEDS: Famotidine 20 MG TAB PO SCH (10:12)
[2021-03-01] MEDS: Aspirin 81 mg Enteric Coated Tablet PO SCH (10:13)
[2021-03-01] MEDS: hydrALAZINE 25 MG TAB PO SCH ×4 (10:13→20:34)
[2021-03-01] MEDS: Amlodipine 10 MG TAB PO SCH (10:13)
[2021-03-01] MEDS: Escitalopram Oxalate 20 mg Tablet PO SCH (10:13)
[2021-03-01 11:47] LABS: SARS-CoV-2 PCR by NAA Not Detected (NotDetected)
[2021-03-01] MEDS: Atorvastatin Calcium 40 MG TAB PO SCH (20:35)
[2021-03-01] MEDS: cefTRIAXone\\ROCEPHIN 1 GM in Sodium Chloride 0.9% 100 ML IVPB SCH (20:36)
[2021-03-02] MEDS: Nitroglycerin 2% Ointment 1 INCH/1 GM Packet TOP SCH (05:10)
[2021-03-02] MEDS: Heparin 5,000 UNITS/ML VIAL SC SCH ×2 (05:10→17:17)
[2021-03-02] MEDS: HumaLOG 300 UNITS/3 ML VIAL SC PRN ×4 (06:21→20:57)
[2021-03-02 07:59] LABS: #Basophils 0.1 thou/uL (0.0-0.2); #Eosinphils 0.2 thou/uL (0.0-0.7); #Lymphocytes 1.8 thou/uL (1.20-3.40); #Monocytes 0.8 thou/uL (0.11-0.59); #Neutrophils 3.8 thou/uL (1.40-6.50); %Basophils 0.8 % (0.0-1.0); %Eosinophils 2.5 % (0.0-10.0); %Lymphocytes 26.7 % (21.0-51.0); %Monocytes 12.5 % (0.0-10.0); %Neutrophils 57.5 % (42.0-75.0); Hemoglobin 9.5 g/dL (12.0-16.0); Mean Corpuscular HGB CONC 32.8 g/dL (32.0-36.0); Mean Corpuscular Hemoglobin 31.1 pg (27.0-31.0); Mean Corpuscular Volume 94.8 fL (78.0-98.0); Mean Platelet Volume 6.8 fL (7.4-10.4); Platelet Count 288 thou/uL (130-400); RBC Distribution Width 14.1 % (11.5-14.5); Red Blood Cell (RBC) Count 3.06 mill/uL (4.20-5.40); White Blood Cell (WBC) Count 6.7 thou/uL (4.8-10.8)
[2021-03-02 08:18] LABS: Anion Gap 15 mmol/L (10-20); BUN (Urea Nitrogen) 27 mg/dL (9.8-20.1); Calc. Creatinine Clearance 19 mL/min (70-130); Calcium 8.7 mg/dL (7.8-10.44); Carbon Dioxide 26 mmol/L (23-31); Chloride 100 mmol/L (98-107); Glucose 301 mg/dL (80-115); Potassium 3.7 mmol/L (3.5-5.1); Sodium 137 mmol/L (136-145)
[2021-03-02] MEDS ORDERED: INSULN ASP SQ SCH (09:00)
[2021-03-02] MEDS ORDERED: INSULIN ASPART PROT SQ SCH (09:00)
[2021-03-02] MEDS ORDERED: Non-Formulary Item 1 EACH (Metoprolol Succinate [Metoprolol Succinate] 200 MG Tab.Er.24h) PO SCH (09:00)
[2021-03-02] MEDS ORDERED: [UNRECOGNIZED DRUG - OTHER] SQ SCH (09:00)
[2021-03-02] MEDS: HumuLIN 70/30 (300 UNITS/3 ML VIAL) SC SCH ×2 (10:00→20:59)
[2021-03-02] MEDS: Famotidine 20 MG TAB PO SCH (10:02)
[2021-03-02] MEDS: Aspirin 81 mg Enteric Coated Tablet PO SCH (10:02)
[2021-03-02] MEDS: hydrALAZINE 25 MG TAB PO SCH ×4 (10:02→20:55)
[2021-03-02] MEDS: Escitalopram Oxalate 20 mg Tablet PO SCH (10:02)
[2021-03-02] MEDS: Amlodipine 10 MG TAB PO SCH (10:03)
[2021-03-02] MEDS: Atorvastatin Calcium 40 MG TAB PO SCH (20:55)
[2021-03-02] MEDS: cefTRIAXone\\ROCEPHIN 1 GM in Sodium Chloride 0.9% 100 ML IVPB SCH (20:57)
[2021-03-03] MEDS: Heparin 5,000 UNITS/ML VIAL SC SCH ×2 (03:35→16:45)
[2021-03-03 05:30] LABS: #Basophils 0.1 thou/uL (0.0-0.2); #Eosinphils 0.3 thou/uL (0.0-0.7); #Lymphocytes 2.4 thou/uL (1.20-3.40); #Neutrophils 3.7 thou/uL (1.40-6.50); %Basophils 0.8 % (0.0-1.0); %Eosinophils 4.4 % (0.0-10.0); %Lymphocytes 32.6 % (21.0-51.0); %Monocytes 13.1 % (0.0-10.0); %Neutrophils 49.1 % (42.0-75.0); Hemoglobin 9.5 g/dL (12.0-16.0); Mean Platelet Volume 6.9 fL (7.4-10.4); Platelet Count 286 thou/uL (130-400); RBC Distribution Width 14.1 % (11.5-14.5); Red Blood Cell (RBC) Count 3.07 mill/uL (4.20-5.40); White Blood Cell (WBC) Count 7.5 thou/uL (4.8-10.8)
[2021-03-03 06:13] LABS: Anion Gap 16 mmol/L (10-20); BUN (Urea Nitrogen) 40 mg/dL (9.8-20.1); Calc. Creatinine Clearance 15 mL/min (70-130); Calcium 8.8 mg/dL (7.8-10.44); Carbon Dioxide 25 mmol/L (23-31); Chloride 101 mmol/L (98-107); Glucose 74 mg/dL (80-115); Potassium 3.2 mmol/L (3.5-5.1); Sodium 139 mmol/L (136-145)
[2021-03-03] MEDS: Aspirin 81 mg Enteric Coated Tablet PO SCH (07:17)
[2021-03-03] MEDS: Escitalopram Oxalate 20 mg Tablet PO SCH (07:17)
[2021-03-03] MEDS: Famotidine 20 MG TAB PO SCH (07:18)
[2021-03-03] MEDS: HumuLIN 70/30 (300 UNITS/3 ML VIAL) SC SCH ×2 (07:20→20:38)
[2021-03-03] MEDS: hydrALAZINE 25 MG TAB PO SCH ×4 (07:20→20:36)
[2021-03-03] MEDS: Amlodipine 10 MG TAB PO SCH (07:20)
[2021-03-03] MEDS: HumaLOG 300 UNITS/3 ML VIAL SC PRN ×2 (17:49→20:39)
[2021-03-03] MEDS: cefTRIAXone\\ROCEPHIN 1 GM in Sodium Chloride 0.9% 100 ML IVPB SCH (20:37)
[2021-03-03] MEDS: Atorvastatin Calcium 40 MG TAB PO SCH (20:37)
[2021-03-04] MEDS: Heparin 5,000 UNITS/ML VIAL SC SCH (05:08)
[2021-03-04] MEDS: HumaLOG 300 UNITS/3 ML VIAL SC PRN ×2 (06:09→11:01)
[2021-03-04] MEDS ORDERED: Cefdinir 300 MG CAP PO SCH (08:00)
[2021-03-04 08:10] VITALS: TEMP 97.8
[2021-03-04] MEDS: hydrALAZINE 25 MG TAB PO SCH (08:41)
[2021-03-04] MEDS: Famotidine 20 MG TAB PO SCH (08:41)
[2021-03-04] MEDS: Amlodipine 10 MG TAB PO SCH (08:42)
[2021-03-04] MEDS: Escitalopram Oxalate 20 mg Tablet PO SCH (08:42)
[2021-03-04] MEDS: Aspirin 81 mg Enteric Coated Tablet PO SCH (08:42)
[2021-03-04] MEDS: HumuLIN 70/30 (300 UNITS/3 ML VIAL) SC SCH (08:43)
[2021-03-04] MEDS ORDERED: Lantus 1000 UNITS/10 ML VIAL SC SCH (09:00)
[2021-03-04 11:55] VITALS: BP 144/63
== END 2021-03-04 12:15 | disposition home or self-care (01) | DRG 871 ==
LOC: ERS 20:55 → 2SW 03-01 02:57 → OBSVTOIN 03-01 10:14
PROVIDERS: ADMIT Internal Medicine; ATTEND Internal Medicine
PROC: 5A1D70Z Performance of Urinary Filtration, Intermittent, Less than 6 Hours Per Day (ICD-10-PCS; principal; 2021-03-01)
DX: A41.9 Sepsis, unspecified organism (principal); N18.6 End stage renal disease; J18.9 Pneumonia, unspecified organism; I12.0 Hypertensive chronic kidney disease with stage 5 chronic kidney disease or end stage renal disease; E87.2 Acidosis; I25.810 Atherosclerosis of coronary artery bypass graft(s) without angina pectoris; E78.5 Hyperlipidemia, unspecified; I16.0 Hypertensive urgency; E87.70 Fluid overload, unspecified; E66.9 Obesity, unspecified; D63.1 Anemia in chronic kidney disease; Z95.5 Presence of coronary angioplasty implant and graft; Z99.2 Dependence on renal dialysis; Z79.82 Long term (current) use of aspirin; Z79.4 Long term (current) use of insulin; Z98.51 Tubal ligation status; Z68.37 Body mass index [BMI] 37.0-37.9, adult
CPT/HCPCS: 36415; 36416; 71045; 71275; 80048; 80053; 80061; 82550; 83605; 83690; 83880; 84484; 85025; 85379; 87040; 87635; 90935; 93005; 94640; 96365; 96372; 96375; 96376; G0257; G0378; J0360; J0456; J0696; J1644; J1815; J3490; J7620; Q9967; U0003; U0005

== ENCOUNTER 2021-10-29 02:10 | Inpatient (IN) | payer MEDICARE ==
[2021-10-29 02:48] LABS: #Eosinphils 0.2 thou/uL (0.0-0.7); #Lymphocytes 1.4 thou/uL (1.20-3.40); #Monocytes 1.3 thou/uL (0.11-0.59); #Neutrophils 8.7 thou/uL (1.40-6.50); %Basophils 0.1 % (0.0-1.0); %Eosinophils 1.7 % (0.0-10.0); %Lymphocytes 12.1 % (21.0-51.0); %Monocytes 11.4 % (0.0-10.0); %Neutrophils 74.7 % (42.0-75.0); Hemoglobin 10.3 g/dL (12.0-16.0); Mean Corpuscular HGB CONC 31.7 g/dL (32.0-36.0); Mean Corpuscular Hemoglobin 30.5 pg (27.0-31.0); Mean Corpuscular Volume 96.5 fL (78.0-98.0); Mean Platelet Volume 7.2 fL (7.4-10.4); Platelet Count 329 thou/uL (130-400); Red Blood Cell (RBC) Count 3.36 mill/uL (4.20-5.40); White Blood Cell (WBC) Count 11.6 thou/uL (4.8-10.8)
[2021-10-29 03:06] LABS: ALT (SGPT) 15 U/L (8-55); AST (SGOT) 19 U/L (5-34); Alkaline Phosphatase 112 U/L (40-110); Anion Gap 21 mmol/L (10-20); BUN (Urea Nitrogen) 65 mg/dL (9.8-20.1); Bilirubin, Total 0.4 mg/dL (0.2-1.2); Calc. Creatinine Clearance 0 mL/min (70-130); Calcium 9.2 mg/dL (7.8-10.44); Carbon Dioxide 23 mmol/L (23-31); Chloride 101 mmol/L (98-107); Globulin 3.8 g/dL (2.4-3.5); Glucose 194 mg/dL (80-115); Potassium 4.6 mmol/L (3.5-5.1); Protein, Total 7.8 g/dL (5.8-8.1); Sodium 140 mmol/L (136-145)
[2021-10-29] MEDS ORDERED: hydrALAZINE 20 MG/ML VIAL ONE (04:08)
[2021-10-29 05:50] LABS: SARS-CoV-2 NAA Rapid Test DETECTED (NotDetected)
[2021-10-29] MEDS ORDERED: Ondansetron PF 4 MG/2 ML Vial IVP PRN (07:36)
[2021-10-29] MEDS ORDERED: Guaifenesin DM 100-10/5 ML UDCUP PO PRN (07:36)
[2021-10-29] MEDS ORDERED: Acetaminophen 650 MG Suppository PR PRN (07:36)
[2021-10-29] MEDS ORDERED: Ondansetron ODT 4 MG TAB PO PRN (07:36)
[2021-10-29] MEDS ORDERED: cloNIDine 0.1 MG TAB PO PRN (07:39)
[2021-10-29 08:16] VITALS: BMI 39.3
[2021-10-29] MEDS ORDERED: Albuterol Sulfate 2.5 mg/3 ml Neb NEB PRN (08:45)
[2021-10-29] MEDS ORDERED: Dextrose 5% in Water 1,000 ML IV PRN (08:47)
[2021-10-29] MEDS ORDERED: Dextrose 50% Abboject 50 ML SYRINGE SLOW IVP PRN (08:47)
[2021-10-29] MEDS ORDERED: HumaLOG 300 UNITS/3 ML VIAL SC PRN (08:47)
[2021-10-29] MEDS ORDERED: [UNRECOGNIZED DRUG - OTHER] SQ SCH (09:00)
[2021-10-29] MEDS ORDERED: INSULIN ASPART PROT SQ SCH (09:00)
[2021-10-29] MEDS ORDERED: INSULN ASP SQ SCH (09:00)
[2021-10-29] MEDS: hydrALAZINE 25 MG TAB PO SCH ×4 (09:37→20:28)
[2021-10-29] MEDS: Acetaminophen 325 MG TAB PO PRN ×2 (09:38→21:59)
[2021-10-29] MEDS: Amlodipine 10 MG TAB PO SCH (09:40)
[2021-10-29] MEDS: Heparin 5,000 UNITS/ML VIAL SC SCH ×3 (10:01→20:29)
[2021-10-29] MEDS: Aspirin 325 MG TAB PO SCH (10:01)
[2021-10-29] MEDS: HumuLIN 70/30 (300 UNITS/3 ML VIAL) SC SCH ×2 (10:02→20:29)
[2021-10-29 10:23] LABS: HBSAg Index 0.27 S/CO (0-0.99); Hep B Surf Ag Non-Reactive S/CO (NonReactive)
[2021-10-29 10:30] LABS: Hep B Surf AB Reactive (NonReactive)
[2021-10-29] MEDS: HumaLOG 300 UNITS/3 ML VIAL SC PRN ×3 (12:02→18:21)
[2021-10-29] MEDS: Atorvastatin Calcium 40 MG TAB PO SCH (20:29)
[2021-10-29] MEDS ORDERED: Non-Formulary Item 1 EACH (Atorvastatin Calcium [Atorvastatin Calcium] 80 MG Tablet) PO SCH (21:00)
[2021-10-30 06:08] LABS: Hemoglobin 9.7 g/dL (12.0-16.0); Mean Corpuscular HGB CONC 32.3 g/dL (32.0-36.0); Mean Corpuscular Hemoglobin 31.6 pg (27.0-31.0); Mean Corpuscular Volume 97.7 fL (78.0-98.0); Mean Platelet Volume 7.3 fL (7.4-10.4); Platelet Count 282 thou/uL (130-400); Red Blood Cell (RBC) Count 3.08 mill/uL (4.20-5.40); White Blood Cell (WBC) Count 5.3 thou/uL (4.8-10.8)
[2021-10-30 06:35] LABS: Band 5 % (5-11); Lymphocytes 29 % (21-51); MDiff Complete? YES; Monocytes 19 % (0-10); Neutrophil 47 % (42-75)
[2021-10-30 06:40] LABS: Anion Gap 17 mmol/L (10-20); BUN (Urea Nitrogen) 38 mg/dL (9.8-20.1); Calc. Creatinine Clearance 18 mL/min (70-130); Calcium 8.8 mg/dL (7.8-10.44); Carbon Dioxide 27 mmol/L (23-31); Chloride 96 mmol/L (98-107); Glucose 151 mg/dL (80-115); Potassium 3.4 mmol/L (3.5-5.1); Sodium 137 mmol/L (136-145)
[2021-10-30] MEDS: Dexamethasone 4 MG TAB PO SCH (08:50)
[2021-10-30] MEDS: Aspirin 325 MG TAB PO SCH (08:50)
[2021-10-30] MEDS: hydrALAZINE 25 MG TAB PO SCH ×4 (08:50→20:20)
[2021-10-30] MEDS: Amlodipine 10 MG TAB PO SCH (08:51)
[2021-10-30] MEDS: Heparin 5,000 UNITS/ML VIAL SC SCH (08:52)
[2021-10-30 09:14] LABS: Magnesium 1.9 mg/dL (1.6-2.6)
[2021-10-30] MEDS ORDERED: Potassium Chloride 20 MEQ TAB PO SCH (10:15)
[2021-10-30] MEDS: HumuLIN 70/30 (300 UNITS/3 ML VIAL) SC SCH (10:25)
[2021-10-30] MEDS: HumaLOG 300 UNITS/3 ML VIAL SC PRN ×3 (10:28→16:45)
[2021-10-30] MEDS ORDERED: HumaLOG 300 UNITS/3 ML VIAL SC PRN (12:36)
[2021-10-30] MEDS: Atorvastatin Calcium 40 MG TAB PO SCH (20:20)
[2021-10-30] MEDS: Apixaban 5 MG TAB PO SCH (20:20)
[2021-10-30] MEDS ORDERED: Lantus 1000 UNITS/10 ML VIAL SC SCH (21:00)
[2021-10-31] MEDS: hydrALAZINE 20 MG/ML VIAL SLOW IVP PRN (04:52)
[2021-10-31] MEDS: HumaLOG 300 UNITS/3 ML VIAL SC PRN ×3 (05:45→16:15)
[2021-10-31 07:01] LABS: #Basophils 0.1 thou/uL (0.0-0.2); #Lymphocytes 1.3 thou/uL (1.20-3.40); #Monocytes 0.6 thou/uL (0.11-0.59); #Neutrophils 3.4 thou/uL (1.40-6.50); %Basophils 1.5 % (0.0-1.0); %Eosinophils 0.1 % (0.0-10.0); %Lymphocytes 24.9 % (21.0-51.0); %Monocytes 11.4 % (0.0-10.0); %Neutrophils 62.1 % (42.0-75.0); Hemoglobin 9.5 g/dL (12.0-16.0); Mean Corpuscular HGB CONC 32.9 g/dL (32.0-36.0); Mean Corpuscular Hemoglobin 31.6 pg (27.0-31.0); Mean Platelet Volume 7.2 fL (7.4-10.4); Platelet Count 268 thou/uL (130-400); RBC Distribution Width 13.6 % (11.5-14.5); White Blood Cell (WBC) Count 5.4 thou/uL (4.8-10.8)
[2021-10-31 07:14] LABS: Anion Gap 21 mmol/L (10-20); BUN (Urea Nitrogen) 62 mg/dL (9.8-20.1); Calc. Creatinine Clearance 13 mL/min (70-130); Calcium 8.6 mg/dL (7.8-10.44); Carbon Dioxide 20 mmol/L (23-31); Chloride 94 mmol/L (98-107); Glucose 449 mg/dL (80-115); Potassium 4.9 mmol/L (3.5-5.1); Sodium 130 mmol/L (136-145)
[2021-10-31] MEDS ORDERED: Lantus 1000 UNITS/10 ML VIAL SC SCH (07:26)
[2021-10-31] MEDS ORDERED: HumaLOG 300 UNITS/3 ML VIAL SC PRN ×3 (07:26→18:15)
[2021-10-31] MEDS: hydrALAZINE 25 MG TAB PO SCH ×4 (08:11→21:54)
[2021-10-31] MEDS: Apixaban 5 MG TAB PO SCH ×2 (08:11→21:59)
[2021-10-31] MEDS: Amlodipine 10 MG TAB PO SCH (08:11)
[2021-10-31] MEDS: Dexamethasone 4 MG TAB PO SCH (08:14)
[2021-10-31] MEDS ORDERED: NIFEdipine XL 60 MG TAB PO SCH (11:45)
[2021-10-31 18:26] LABS: Glucose 556 mg/dL (80-115)
[2021-10-31] MEDS: HumuLIN 70/30 (300 UNITS/3 ML VIAL) SC SCH (18:37)
[2021-10-31] MEDS: Atorvastatin Calcium 40 MG TAB PO SCH (21:59)
[2021-11-01] MEDS: hydrALAZINE 20 MG/ML VIAL SLOW IVP PRN (00:39)
[2021-11-01] MEDS: Acetaminophen 325 MG TAB PO PRN (02:26)
[2021-11-01 06:19] LABS: Hemoglobin 9.2 g/dL (12.0-16.0); Mean Corpuscular HGB CONC 32.3 g/dL (32.0-36.0); Mean Corpuscular Hemoglobin 31.6 pg (27.0-31.0); Mean Platelet Volume 7.8 fL (7.4-10.4); Platelet Count 247 thou/uL (130-400); RBC Distribution Width 13.4 % (11.5-14.5); Red Blood Cell (RBC) Count 2.91 mill/uL (4.20-5.40); White Blood Cell (WBC) Count 9.9 thou/uL (4.8-10.8)
[2021-11-01 06:20] LABS: Band 5 % (5-11); Hypochromia SLIGHT = 6-15 cells (100X) (0-5/hpf); Lymphocytes 17 % (21-51); MDiff Complete? YES; Monocytes 8 % (0-10); Neutrophil 70 % (42-75); Platelet Morphology Comment Appears Adequate
[2021-11-01 06:30] LABS: Anion Gap 21 mmol/L (10-20); BUN (Urea Nitrogen) 84 mg/dL (9.8-20.1); Calc. Creatinine Clearance 13 mL/min (70-130); Calcium 8.6 mg/dL (7.8-10.44); Carbon Dioxide 19 mmol/L (23-31); Chloride 96 mmol/L (98-107); Glucose 287 mg/dL (80-115); Potassium 4.8 mmol/L (3.5-5.1); Sodium 131 mmol/L (136-145)
[2021-11-01 08:46] VITALS: TEMP 97.8
[2021-11-01] MEDS ORDERED: NIFEdipine XL 60 MG TAB PO SCH (09:00)
[2021-11-01] MEDS: Apixaban 5 MG TAB PO SCH (10:01)
[2021-11-01] MEDS: Dexamethasone 4 MG TAB PO SCH (10:02)
[2021-11-01] MEDS: HumuLIN 70/30 (300 UNITS/3 ML VIAL) SC SCH (12:48)
[2021-11-01] MEDS: hydrALAZINE 25 MG TAB PO SCH ×2 (12:49→12:50)
[2021-11-01 12:51] VITALS: BP 177/73
[2021-11-01] MEDS ORDERED: cloNIDine 0.1 MG TAB PO SCH (13:35)
[2021-11-02] MEDS ORDERED: NIFEdipine XL 90 MG TAB PO SCH (09:00)
== END 2021-11-01 14:44 | disposition home or self-care (01) | DRG 177 ==
LOC: ERS 02:10 → NEURO 04:04 → OBSVTOIN 08:47 → 2SW 21:17
PROVIDERS: ADMIT Internal Medicine; ATTEND Internal Medicine
PROC: 8E0ZXY6 Isolation (ICD-10-PCS; principal; 2021-10-29)
PROC: 5A1D70Z Performance of Urinary Filtration, Intermittent, Less than 6 Hours Per Day (ICD-10-PCS; 2021-10-29)
DX: U07.1 COVID-19 (principal); J12.82 Pneumonia due to coronavirus disease 2019; J96.01 Acute respiratory failure with hypoxia; N18.6 End stage renal disease; I50.32 Chronic diastolic (congestive) heart failure; E78.5 Hyperlipidemia, unspecified; E11.22 Type 2 diabetes mellitus with diabetic chronic kidney disease; I16.0 Hypertensive urgency; D63.1 Anemia in chronic kidney disease; E66.01 Morbid (severe) obesity due to excess calories; I48.0 Paroxysmal atrial fibrillation; E11.65 Type 2 diabetes mellitus with hyperglycemia; I25.10 Atherosclerotic heart disease of native coronary artery without angina pectoris; Z99.2 Dependence on renal dialysis; Z95.1 Presence of aortocoronary bypass graft; Z79.84 Long term (current) use of oral hypoglycemic drugs; Z79.4 Long term (current) use of insulin; Z79.899 Other long term (current) drug therapy; Z68.39 Body mass index [BMI] 39.0-39.9, adult
CPT/HCPCS: 36415; 36416; 71045; 71046; 80048; 80053; 82728; 83735; 83880; 84484; 85025; 86140; 86706; 87340; 93005; 93306; G0378; J0360; J1644; J1815; J2405; J8540; U0002

== ENCOUNTER 2021-11-04 17:44 | Emergency (ER) | payer MEDICARE ==
[2021-11-04 18:32] LABS: #Lymphocytes 1.4 thou/uL (1.20-3.40); #Monocytes 0.7 thou/uL (0.11-0.59); #Neutrophils 5.9 thou/uL (1.40-6.50); %Basophils 0.4 % (0.0-1.0); %Eosinophils 0.4 % (0.0-10.0); %Lymphocytes 17.3 % (21.0-51.0); %Monocytes 8.4 % (0.0-10.0); %Neutrophils 73.6 % (42.0-75.0); Mean Corpuscular Hemoglobin 30.7 pg (27.0-31.0); Mean Corpuscular Volume 96.1 fL (78.0-98.0); Platelet Count 249 thou/uL (130-400); RBC Distribution Width 13.5 % (11.5-14.5); Red Blood Cell (RBC) Count 3.24 mill/uL (4.20-5.40); White Blood Cell (WBC) Count 8.1 thou/uL (4.8-10.8)
[2021-11-04 18:56] LABS: ALT (SGPT) 12 U/L (8-55); AST (SGOT) 13 U/L (5-34); Albumin 3.6 g/dL (3.4-4.8); Alkaline Phosphatase 70 U/L (40-110); Anion Gap 22 mmol/L (10-20); BUN (Urea Nitrogen) 102 mg/dL (9.8-20.1); Bilirubin, Total 0.4 mg/dL (0.2-1.2); Calc. Creatinine Clearance 0 mL/min (70-130); Calcium 8.3 mg/dL (7.8-10.44); Carbon Dioxide 16 mmol/L (23-31); Chloride 99 mmol/L (98-107); Globulin 3.8 g/dL (2.4-3.5); Glucose 430 mg/dL (80-115); Potassium 5.1 mmol/L (3.5-5.1); Protein, Total 7.4 g/dL (5.8-8.1); Sodium 132 mmol/L (136-145)
[2021-11-04 20:17] LABS: Actual Bicarbonate (HCO3v) 18 mEq/L (22-28); Analyzer IN Cardio ER; Calcium, Ionized (venous) 1.02 mmol/L (1.16-1.32); Chloride (VBG) 98 mmol/L (98-106); Hemoglobin (Hb) 10.7 g/dL (11.7-16.0); Potassium (VBG) 5.27 mmol/L (3.70-5.30); Sodium 131.7 mmol/L (133-146); pH (venous) 7.28 (7.32-7.43)
== END 2021-11-05 00:22 | disposition home or self-care (01) ==
LOC: ERS 17:44
DX: I12.0 Hypertensive chronic kidney disease with stage 5 chronic kidney disease or end stage renal disease (principal); N18.6 End stage renal disease; E78.5 Hyperlipidemia, unspecified; E78.00 Pure hypercholesterolemia, unspecified; E11.22 Type 2 diabetes mellitus with diabetic chronic kidney disease; Z99.2 Dependence on renal dialysis
CPT/HCPCS: 36415; 80053; 82010; 82805; 85025; 93005

== ENCOUNTER 2024-03-03 05:12 | Inpatient (IN) | payer OTHER ==
[2024-03-03 06:14] LABS: #Basophils 0.05 10x3/uL (0.0-0.2); %Basophils 0.4 % (0.0-1.0); %Eosinophils 1.1 % (0.0-10.0); %Lymphocytes 8.7 % (21.0-51.0); %Monocytes 10.2 % (0.0-10.0); Hematocrit 31.2 % (36.0-47.0); Hemoglobin 9.8 g/dL (12.0-16.0); Mean Corpuscular HGB CONC 31.4 g/dL (32.0-36.0); Mean Corpuscular Hemoglobin 28.9 pg (27.0-31.0); Mean Platelet Volume 9.3 fL (7.4-10.4); Platelet Count 329 10x3/uL (130-400); RBC Distribution Width 19.3 % (11.5-14.5); Red Blood Cell (RBC) Count 3.39 mill/uL (4.20-5.40)
[2024-03-03 06:25] LABS: ALT (SGPT) 14 U/L (8-55); AST (SGOT) 15 U/L (5-34); Albumin 3.3 g/dL (3.4-4.8); Alkaline Phosphatase 76 U/L (40-110); Anion Gap 19 mmol/L (10-20); BUN (Urea Nitrogen) 54 mg/dL (9.8-20.1); Bilirubin, Total 0.8 mg/dL (0.2-1.2); Calc. Creatinine Clearance 0 mL/min (70-130); Calcium 10.1 mg/dL (7.8-10.44); Carbon Dioxide 27 mmol/L (23-31); Chloride 99 mmol/L (98-107); Estimated GFR 6; Globulin 4.7 g/dL (2.4-3.5); Glucose 156 mg/dL (80-115); Lipase 16 U/L (8-78); Potassium 4.7 mmol/L (3.5-5.1); Sodium 140 mmol/L (136-145)
[2024-03-03] MEDS ORDERED: Nitroglycerin 2% Ointment 1 INCH/1 GM Packet ONE (06:53)
[2024-03-03 06:59] LABS: Critical Call Chem Troponin I NUR.CLA1@0658; Troponin I 0.419 ng/mL (< 0.028)
[2024-03-03] MEDS ORDERED: hydrALAZINE 20 MG/ML VIAL SLOW IVP PRN (07:54)
[2024-03-03] MEDS ORDERED: Ondansetron ODT 4 MG TAB SL PRN (07:54)
[2024-03-03] MEDS: Apixaban 2.5 MG TAB PO SCH (09:16)
[2024-03-03] MEDS: Carvedilol 25 MG TAB PO SCH (09:16)
[2024-03-03] MEDS: Cefdinir 300 MG CAP PO SCH (09:30)
[2024-03-03 10:25] LABS: Critical Call Chem Troponin I DOWN; Troponin I 0.404 ng/mL (< 0.028)
[2024-03-03] MEDS ORDERED: Dicyclomine 10 MG CAP PO PRN (10:50)
[2024-03-03] MEDS ORDERED: traMADol HCl 50 MG TAB PO PRN (10:50)
[2024-03-03] MEDS ORDERED: Heparin 10,000 UNITS/ 10 ML VIAL ONE (13:18)
[2024-03-03 13:34] LABS: Critical Call Chem Troponin I DOWN; Troponin I 0.385 ng/mL (< 0.028)
[2024-03-03] MEDS: NIFEdipine XL 90 MG ER.TAB PO SCH (13:47)
[2024-03-03 13:54] LABS: HBSAB Concentration 208.74 mIU/mL; HBsAg Index 0.22 S/CO (0-0.99); Hep B Core Total Ab NONREACTIVE (NonReactive); Hep B Core Total Index 0.26 S/CO (0-0.79); Hep B Surf AB REACTIVE (NonReactive); Hep B Surf Ag NONREACTIVE S/CO (NonReactive); Hep C IgG Ab NONREACTIVE S/CO (NonReactive); Hep C Index 0.08 S/CO (0-0.79)
[2024-03-03] MEDS: hydrALAZINE 25 MG TAB PO SCH (18:25)
[2024-03-03] MEDS: Acetaminophen 325 MG TAB PO PRN (21:24)
[2024-03-03] MEDS: Losartan 25 MG TAB PO SCH (21:24)
[2024-03-03] MEDS: Pantoprazole DR 40 MG TAB PO SCH (21:24)
[2024-03-04 05:11] LABS: #Basophils 0.03 10x3/uL (0.0-0.2); %Basophils 0.4 % (0.0-1.0); %Eosinophils 2.7 % (0.0-10.0); %Monocytes 15.2 % (0.0-10.0); %Neutrophils 61.3 % (42.0-75.0); Hematocrit 26.8 % (36.0-47.0); Hemoglobin 8.2 g/dL (12.0-16.0); Mean Corpuscular HGB CONC 30.6 g/dL (32.0-36.0); Mean Corpuscular Hemoglobin 29.5 pg (27.0-31.0); Mean Corpuscular Volume 96.4 fL (78.0-98.0); Mean Platelet Volume 9.7 fL (7.4-10.4); Platelet Count 275 10x3/uL (130-400); RBC Distribution Width 19.3 % (11.5-14.5); Red Blood Cell (RBC) Count 2.78 mill/uL (4.20-5.40)
[2024-03-04 05:50] LABS: Anion Gap 17 mmol/L (10-20); BUN (Urea Nitrogen) 39 mg/dL (9.8-20.1); Calc. Creatinine Clearance 0 mL/min (70-130); Calcium 8.7 mg/dL (7.8-10.44); Carbon Dioxide 27 mmol/L (23-31); Chloride 97 mmol/L (98-107); Estimated GFR 8; Glucose 133 mg/dL (80-115); Potassium 3.9 mmol/L (3.5-5.1); Sodium 137 mmol/L (136-145)
[2024-03-04 06:10] VITALS: BMI 39.6
[2024-03-04] MEDS ORDERED: Heparin 10,000 UNITS/ 10 ML VIAL ONE (08:32)
[2024-03-04] MEDS: Atorvastatin Calcium 40 MG TAB PO SCH (16:20)
[2024-03-04] MEDS: NIFEdipine XL 90 MG ER.TAB PO SCH (16:21)
[2024-03-04] MEDS: Folic Acid/Vit B Comp W-C PO SCH (16:21)
[2024-03-04] MEDS: FLUoxetine HCl 10 MG CAP PO SCH (16:21)
[2024-03-04] MEDS: hydrALAZINE 25 MG TAB PO SCH (16:22)
[2024-03-04] MEDS: Isosorbide Mononitrate 30 MG ER.TAB PO SCH (16:22)
[2024-03-04] MEDS: Aspirin Chewable 81 MG TAB PO SCH (16:22)
[2024-03-04] MEDS: Cefdinir 300 MG CAP PO SCH (20:36)
[2024-03-05 04:55] LABS: #Basophils 0.03 10x3/uL (0.0-0.2); %Basophils 0.4 % (0.0-1.0); %Lymphocytes 19.2 % (21.0-51.0); %Monocytes 15.8 % (0.0-10.0); %Neutrophils 61.2 % (42.0-75.0); Hematocrit 30.1 % (36.0-47.0); Hemoglobin 9.1 g/dL (12.0-16.0); Mean Corpuscular HGB CONC 30.2 g/dL (32.0-36.0); Mean Corpuscular Hemoglobin 29.3 pg (27.0-31.0); Mean Corpuscular Volume 96.8 fL (78.0-98.0); Mean Platelet Volume 9.3 fL (7.4-10.4); Platelet Count 286 10x3/uL (130-400); RBC Distribution Width 19.5 % (11.5-14.5); Red Blood Cell (RBC) Count 3.11 mill/uL (4.20-5.40)
[2024-03-05 05:35] LABS: Anion Gap 15 mmol/L (10-20); BUN (Urea Nitrogen) 28 mg/dL (9.8-20.1); Calc. Creatinine Clearance 17 mL/min (70-130); Calcium 9.4 mg/dL (7.8-10.44); Carbon Dioxide 27 mmol/L (23-31); Chloride 99 mmol/L (98-107); Estimated GFR 9; Glucose 115 mg/dL (80-115); Potassium 4.3 mmol/L (3.5-5.1); Sodium 137 mmol/L (136-145)
[2024-03-05] MEDS ORDERED: Heparin 10,000 UNITS/ 10 ML VIAL ONE (10:39)
[2024-03-05] MEDS: Albumin 25% 25 GM (100 mL) BOT IVPB SCH (15:15)
[2024-03-05] MEDS: Midodrine HCl 5 MG TAB PO SCH (15:15)
[2024-03-06 04:44] LABS: #Basophils 0.06 10x3/uL (0.0-0.2); %Basophils 0.7 % (0.0-1.0); %Eosinophils 3.4 % (0.0-10.0); %Lymphocytes 22.7 % (21.0-51.0); %Monocytes 13.4 % (0.0-10.0); %Neutrophils 59.1 % (42.0-75.0); Hematocrit 29.9 % (36.0-47.0); Hemoglobin 9.2 g/dL (12.0-16.0); Mean Corpuscular HGB CONC 30.8 g/dL (32.0-36.0); Mean Corpuscular Hemoglobin 28.8 pg (27.0-31.0); Mean Corpuscular Volume 93.7 fL (78.0-98.0); Mean Platelet Volume 9.3 fL (7.4-10.4); Platelet Count 297 10x3/uL (130-400); RBC Distribution Width 19.4 % (11.5-14.5); Red Blood Cell (RBC) Count 3.19 mill/uL (4.20-5.40)
[2024-03-06 05:00] LABS: Anion Gap 22 mmol/L (10-20); BUN (Urea Nitrogen) 53 mg/dL (9.8-20.1); Calc. Creatinine Clearance 12 mL/min (70-130); Calcium 9.5 mg/dL (7.8-10.44); Carbon Dioxide 22 mmol/L (23-31); Chloride 97 mmol/L (98-107); Estimated GFR 6; Glucose 147 mg/dL (80-115); Potassium 4.5 mmol/L (3.5-5.1); Sodium 136 mmol/L (136-145)
[2024-03-06 15:39] VITALS: BP 117/66; TEMP 97.5
== END 2024-03-06 16:42 | disposition home or self-care (01) | DRG 640 ==
LOC: ERS 05:12 → 2NO 06:56 → OBSVTOIN 03-05 14:40
PROVIDERS: ADMIT Student in an Organized Health Care Education/Training Program; ATTEND Internal Medicine
PROC: 5A1D70Z Performance of Urinary Filtration, Intermittent, Less than 6 Hours Per Day (ICD-10-PCS; principal; 2024-03-03)
DX: E87.70 Fluid overload, unspecified (principal); I21.A1 Myocardial infarction type 2; N18.6 End stage renal disease; J96.01 Acute respiratory failure with hypoxia; I50.30 Unspecified diastolic (congestive) heart failure; I13.0 Hypertensive heart and chronic kidney disease with heart failure and stage 1 through stage 4 chronic kidney disease, or unspecified chronic kidney disease; E11.22 Type 2 diabetes mellitus with diabetic chronic kidney disease; E78.5 Hyperlipidemia, unspecified; I25.10 Atherosclerotic heart disease of native coronary artery without angina pectoris; E66.9 Obesity, unspecified; D63.1 Anemia in chronic kidney disease; E88.09 Other disorders of plasma-protein metabolism, not elsewhere classified; I48.0 Paroxysmal atrial fibrillation; Z95.1 Presence of aortocoronary bypass graft; Z79.899 Other long term (current) drug therapy; Z79.01 Long term (current) use of anticoagulants; Z79.4 Long term (current) use of insulin; Z99.2 Dependence on renal dialysis; Z68.38 Body mass index [BMI] 38.0-38.9, adult
CPT/HCPCS: 36415; 36416; 70551; 71045; 80048; 80053; 83690; 83880; 84484; 85025; 86704; 86706; 86803; 87340; 93005; 93798; 94760; G0378; J1644; P9047